=== PATIENT | male | born 1955 | race Caucasian/White ===

== ENCOUNTER 2022-10-19 10:54 | Inpatient (IN) | payer MEDICARE, SELFPAY ==
[2022-10-19] VITALS (13 sets, daily range): BP systolic 114–150; BP diastolic 72–111; PULSE 71–88; RESP 15–22; TEMP 36.3–36.7; O2SAT 96–100; BMI 35.9
--- NOTE | ~2022-10-19 | CT_ITS ---
EXAMINATION: NONCONTRAST HEAD CT NONCONTRAST CERVICAL SPINE CT INDICATION INFORMATION: Fall COMPARISON: None TECHNIQUE: Separate noncontrast CT examinations of the head and cervical spine were performed. Coronal head CT images and coronal and sagittal cervical spine images were created at the technologist workstation. DLP: 1513 mGy-cm DOSE LOWERING TECHNIQUES: This CT examination was performed using dose optimization techniques as appropriate, variously including the following: - Automated exposure control - Adjustment of mA and/or kV according to patient size (this includes techniques or standardized protocols for targeted exams were dose is matched to indication/reason for exam; i.e. extremities or head) - Use of iterative reconstruction technique FINDINGS: Head: Suboptimal assessment in some regions due to motion artifact. There is no evidence of acute intracranial hemorrhage or territorial infarction. No abnormal mass-effect or midline shift is seen. Vines to white matter differentiation is well preserved. No extra-axial fluid collections are identified. The ventricles are normal in size. There is no abnormal attenuation within the brain parenchyma. The osseous structures and soft tissues are normal. Slight mucosal thickening of the maxillary and right sphenoid sinuses as well as the bilateral ethmoid air cells. The mastoid air cells are well-aerated. Cervical spine: There is significantly limited evaluation of much of the cervical spine due to motion artifact. There is degenerative change at the atlantodens articulation. There is grossly anatomic alignment of the vertebral bodies and posterior elements. Vertebral body heights are maintained. There is disc space narrowing of the lower cervical spine with associated endplate irregularity/osteophyte formation. No definite evidence of acute fracture, though subtle fracture is difficult to exclude in the setting of motion. No appreciable prevertebral soft tissue swelling. CT/CT cervical spine wo IV con IMPRESSION: HEAD: Suboptimal assessment in some regions due to motion artifact. No acute findings identified. CERVICAL SPINE: Significantly limited evaluation due to motion artifact. No definite acute findings identified, though subtle fractures would be difficult to exclude in this setting.
--- NOTE | ~2022-10-19 | FL_ITS ---
EXAMINATION: XR FLUOROSCOPY WITH IMAGES CLINICAL INFORMATION: ORIF left humerus. COMPARISON: Radiographs dated 10/19/2022. TECHNIQUE: Fluoroscopy Supervised By: Dr. Glenn Landaverde. Fluoroscopy Time: 0.5 minutes. Cumulative Dose: 15.0 mGy. DAP: 0.262 Gycm2. Images: 1. FINDINGS: An intraoperative fluoroscopic image is obtained during ORIF of a left humeral fracture/dislocation. The previously seen dislocation is partially reduced in the interim, with subluxation. A comminuted, displaced fracture fragment is seen of the greater tuberosity of the proximal left humerus. FL/FL guidance in OR IMPRESSION: Intraoperative fluoroscopic guidance is provided during ORIF of a left humeral fracture/dislocation. Please see the patient's Operative Report for full procedural details.
--- NOTE | ~2022-10-19 | CT_ITS ---
EXAMINATION: CT CHEST, ABDOMEN AND PELVIS WITH CONTRAST. CLINICAL INFORMATION: fall.. COMPARISON: Plain films from today. TECHNIQUE: Multidetector volumetric imaging was performed from the thoracic inlet through the pubic symphysis following administration of 85 mL Omnipaque 300 intravenous contrast. Sagittal and coronal reformatted images were obtained on the technologist's workstation. This CT examination was performed using dose optimization techniques as appropriate, variously including the following: *Automated exposure control *Adjustment of mA and/or kV according to patient size (this includes techniques or standardized protocols for targeted exams where dose is matched to indication/reason for exam; i.e. extremities or head) *Use of iterative reconstruction technique DLP: 2346 mGy-cm FINDINGS: CHEST: Lung: Mild dependent atelectasis. No pneumothorax or dense consolidation. Central airways grossly unremarkable Mediastinum: The mediastinum is normal. The central vascular structures are unremarkable. No hilar or mediastinal lymphadenopathy. Pericardium/Pleura: No significant effusion. No pleural mass or thickening. Chest Wall/Axilla: Extensive soft tissue swelling is seen with the comminuted fracture dislocation of the left shoulder. The main humeral head components is dislocated inferiorly and medially with the displaced greater trochanteric fracture fragment displaced laterally likely within the joint space. Inferior scapular fracture seen as well ABDOMEN/PELVIS: Peritoneal Space:No significant free air or free fluid identified. Liver, Gallbladder, Biliary Tree: The liver is normal in size, shape, and attenuation. No focal hepatic lesion or biliary ductal dilatation is present. Gallstones in the dependent portion of the otherwise unremarkable gallbladder Pancreas: Unremarkable. Spleen: Unremarkable. Adrenal Glands: Unremarkable. Kidneys and Ureters: The kidneys are normal in size, shape, and attenuation. No hydronephrosis, hydroureter, or calculi seen. No perinephric stranding. Bladder: Unremarkable. Gastrointestinal Tract: Extensive colonic diverticulosis more so in the sigmoid colon. No colonic wall thickening or pericolonic inflammatory change. Visualized small bowel unremarkable Abdominal Wall: Diastases of the rectus abdominis muscle likely inferior hernia component. No obstruction to the bowel in this region Lymphovascular Structures: Vascular calcification in the aorta iliac system. No bulky adenopathy. Pelvic Viscera: Unremarkable. Osseus Structures: Complex fracture dislocation of the left humeral head as described above. Displaced inferior left scapular fracture as well. I do not appreciate any associated displaced rib fractures although there is patient motion which could obscure nondisplaced fractures. Extensive multilevel degenerative changes in the spine with chronic appearing wedge deformities in the midthoracic spine. Compression of the superior endplate of L1 also more likely chronic in nature based on the degree of sclerosis and osteophyte formation. Extensive multilevel degenerative changes seen elsewhere. CT/CT abdomen pelvis w IV con IMPRESSION: Complex fracture dislocation of the left shoulder and scapula with associated soft tissue swelling. I do not appreciate any visceral organ injury. Chronic appearing changes otherwise as described above.
--- NOTE | ~2022-10-19 | US_ITS ---
EXAMINATION: US VENOUS WITH DOPPLER UPPER EXTREMITY, LEFT CLINICAL INFORMATION: Left upper extremity swelling. COMPARISON: None available. TECHNIQUE: Ultrasound of the upper extremity is performed using compression sonography and color and pulse Doppler flow with assessment of augmentation of flow. There is also imaging and Doppler assessment of the jugular and subclavian veins. Spectral analysis with color-flow imaging is performed. Technically limited by patient's body habitus. FINDINGS: Respiratory variation, normal compression, and augmented flow are noted throughout the upper extremity including the axillary, brachial, cubital, and radial and ulnar veins. There is normal flow in the internal jugular and subclavian veins. There is no visible deep or superficial thrombophlebitis. If the patient's symptoms progress, a followup ultrasound in 5 -7 days might be of value to exclude proximal propagation from a nonvisualized distal arm vein. US/US venous duplex UE LT IMPRESSION: No DVT demonstrated in the left upper extremity.
--- NOTE | ~2022-10-19 | XR_ITS ---
EXAMINATION: XR SHOULDER, LEFT CLINICAL INFORMATION: Shoulder reduction? COMPARISON: Images of the left humerus earlier today TECHNIQUE: Single frontal view of the shoulder obtained of the left shoulder. FINDINGS: Comminuted fracture dislocation of the shoulders again seen with the majority the humeral head anteriorly and inferiorly dislocated. The greater trochanteric fracture fragments are displaced superiorly and laterally. Displaced inferior scapular fracture noted as well. Visualized left chest unremarkable. XR/XR shoulder LT 1V IMPRESSION: Comminuted fracture dislocation of the left shoulder as described above.
--- NOTE | ~2022-10-19 | XR_ITS ---
EXAMINATION: XR HUMERUS, LEFT CLINICAL INFORMATION: Pain status post fall. COMPARISON: None available. TECHNIQUE: AP and lateral views of the left humerus. FINDINGS: Humeral head is anteriorly dislocated with avulsed fragments at the greater tuberosity remaining near the glenoid fossa. Soft tissues are swollen. 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 XR/XR humerus LT IMPRESSION: Anterior dislocation of the humeral head with an avulsion fracture at the greater tuberosity.
--- NOTE | 2022-10-19 11:31 | ED.FALL ---
HPI - Fall General Chief Complaint: Fall Stated Complaint: L ARM/RIB/ PAIN/BRUISING/SWELLIN S/P FALL 1 WK AGO Time Seen by Provider: 10/19/22 16:21 Source: patient Mode of arrival: ambulatory Limitations: no limitations History of Present Illness HPI Narrative: 67-year-old male history of atrial fibrillation and vertigo presents to ED for left arm pain with ecchymosis and bruising since fall that occurred at 11 days ago. Patient states 11 days ago while walking he had a bout of vertigo which she suffers from chronically which caused him to fall onto his left shoulder. Patient denies hitting head, loss of consciousness, chest pain, shortness of breath, or abdominal pain. Patient has not had any dizzy spells since incident and denies any rectal bleeding, headache, nausea, vomiting, blood in urine, coughing up blood, chest pain, shortness of breath, neck pain, syncope, ringing in ear, or pleurisy. Patient states he has been moving his left upper extremity for the past 11 days. Patient states left arm has been significantly swollen for the past 11 days. Patient presents to ED for left arm pain and swelling. Patient states left arm swelling has not resolved. Patient came to the ED for left arm pain and swelling. Related Data Home Medications Medication Instructions Recorded Confirmed albuterol sulfate 90 mcg/actuation 1 inh inhalation QID PRN Shortness 10/20/22 10/20/22 aerosol inhaler Of Breath Or Wheezing meclizine 25 mg tablet 25 mg PO DAILY PRN Dizziness Or 10/20/22 10/20/22 Vertigo Previous Rx's Medication Instructions Recorded oxycodone 5 mg capsule 5 mg PO Q8H PRN pain 3 days #9 caps 10/20/22 Allergies Allergy/AdvReac Type Severity Reaction Status Date / Time No Known Allergies Allergy Unknown UNKNOWN Unverified 10/26/19 14:48 [NO KNOWN ALLERGIES] Review of Systems Review of Systems: Left arm pain with swelling. Yes all other systems are reviewed and are negative PMFSH Social History Social History Household Members: None Housing: Apartment Do you presently have visiting nurse or other home services: Yes Patient Tobacco Use Status: Current everyday Tobacco user Tobacco use type: Cigarette Physical Exam Vital Signs: Vital Signs: Last Vital Signs Temp 98.8 F 10/21/22 14:20 Pulse 74 10/21/22 14:20 Resp 18 10/21/22 14:20 BP 142/95 H 10/21/22 14:20 Pulse Ox 99 10/21/22 14:20 O2 Del Method Room Air 10/21/22 14:20 O2 Flow Rate 4 10/20/22 05:34 Oxygen Flow Rate 0 10/19/22 20:58 BMI result Body Mass Index 35.9 Const: General: cooperative, healthy appearing, comfortable, no acute distress, well developed, alert, awake and Physically active Orientation/consciousness: oriented to person, oriented to place, oriented to time and patient oriented x3 HEENT: Head: Yes normal to inspection, Yes No palpable skull fracture present, Yes normocephalic, Yes atraumatic and No abrasion Eyes: General: appearance normal, both eyes and all related structures Neck: Neck: Yes normal visual inspection, Yes full ROM, Yes no lymphadenopathy, Yes no meningeal signs, Yes trachea midline, Yes supple, No anterior neck swelling and No tender Chest: Chest/axillae images: 1. Large area of ecchymosis Resp: Effort & Inspection: normal respiratory effort and able to speak in complete sentences Auscultation: clear to auscultation bilaterally Cardio: Jugular venous distension: no JVD Heart sounds: S1 normal heart sound present and S2 normal heart sound present GI: Inspection: Yes normal to inspection and Yes abdominal wall ecchymosis Palpation (GI): Soft to palpation, not firm, nontender, no guarding and not rigid Abdomen image: 1. Positive for ecchymosis : General: No CVA tenderness and Yes no CVA tenderness Back/Spine/Pelvis: Back: no CVA tenderness, No CVA tenderness and No back tenderness Skin: General skin exam: no rashes or lesions noted and elasticity normal Neuro: General: oriented to person, oriented to place, oriented to time, patient oriented x3, gait normal, tone normal, moves all extremities, Normal light touch and pain sensation, no meningeal signs, no focal motor deficits, CN's II-XI intact bilaterally and normal sensation to monofilament Extrem: Shoulder/upper arm images: 1. Left upper extremity swelling up to hands without any erythema or hotness. Positive for ecchymosis. Positive for tenderness only at humeral head. Patient able to move left upper extremity but limited due to pain. Neuro and vascular exam of left upper extremity intact. Course Course Course Narrative: RME - 67 yo male with history of vertigo presents to the ER for evaluation of left arm pain and swelling s/p fall 11 days ago. He was dizzy and fell onto the left side. Has had upper left arm pain since and developed significant swelling to the arm. Pain is 10/10. No headache, chest pain or abdominal pain. Tenderness and limited ROM of the left upper arm, concern for humerus fx. Very swollen hand but warm with palpable pulse. Will place in sling for comfort. Plan: x-ray humerus, U/S to r/o DVT Reevaluation(s) Reevaluation #1: Dr. Ballesteros came and evaluated the patient this morning. Patient require surgical intervention, planning for surgery tomorrow. Patient desats with sleep, likely has underlying, undiagnosed JAVAN given his body habitus. Does not use CPAP at home or oxygen at home. Will plan to admit to Medicine with Orthopedic consult, plan for surgery tomorrow. Time: 08:55 Medications Administered Generic Name Dose Route Start Last Admin Trade Name Freq PRN Reason Stop Dose Admin Morphine Sulfate 2 mg 10/20/22 09:13 10/21/22 11:43 Morphine Sulfate 2 Mg/Ml Cartridge IVPUSH 2 mg Q3H PRN Administration moderate pain Protocol Sodium Chloride 3 ml 10/20/22 16:00 10/21/22 14:11 0.9 % Sodium Chloride Flush 3 Ml Syringe IVFLUSH Not Given QSHIFT DENISA Discontinued Medications Generic Name Dose Route Start Last Admin Trade Name Freq PRN Reason Stop Dose Admin Acetaminophen 650 mg 10/19/22 16:55 10/19/22 17:08 Acetaminophen 325 Mg Tablet PO 10/19/22 16:56 650 mg ONCE ONE Administration Hydromorphone HCl 0.5 mg 10/19/22 21:06 10/19/22 21:09 Hydromorphone Hcl 0.5 Mg/0.5 Ml Syringe IVPUSH 10/19/22 21:07 0.5 mg ONCE ONE Administration Protocol Cefazolin Sodium/Dextrose 2 gm in 50 mls @ 100 mls/hr 10/20/22 10:46 10/21/22 14:03 Ancef IV 10/20/22 11:15 Not Given PREOP ONE Iohexol 100 ml 10/19/22 22:04 10/19/22 22:05 Iohexol 350 Mg/Ml 100 Ml Infus..Btl IV 10/19/22 22:05 85 ml ONCE ONE Administration Ketamine HCl 113.398 mg 10/19/22 21:16 10/19/22 21:23 Ketamine Hcl/Ns 50 Mg/5 Ml Syringe 1 mg/kg (113.398 mg) 10/19/22 21:17 113.398 mg IVPUSH Administration ONCE ONE Ketamine HCl 113.398 mg 10/19/22 21:33 10/19/22 21:35 Ketamine Hcl/Ns 50 Mg/5 Ml Syringe 1 mg/kg (113.398 mg) 10/19/22 21:34 113.398 mg IVPUSH Administration ONCE ONE Lorazepam 2 mg 10/19/22 21:50 10/19/22 21:50 Lorazepam 2 Mg/Ml Vial IVPUSH 10/19/22 21:51 2 mg ONCE ONE Administration Lorazepam 2 mg 10/19/22 21:54 10/19/22 22:16 Lorazepam 2 Mg/Ml Vial IVPUSH 10/19/22 21:55 Not Given ONCE ONE Morphine Sulfate 4 mg 10/19/22 19:22 10/19/22 19:30 Morphine Sulfate 4 Mg/Ml Cartridge IVPUSH 10/19/22 19:23 4 mg ONCE ONE Administration Protocol Ondansetron HCl 4 mg 10/19/22 21:16 10/19/22 21:39 Ondansetron Hcl 4 Mg/2 Ml Vial IVPUSH 10/19/22 21:17 4 mg ONCE ONE Administration Oxycodone HCl 5 mg 10/19/22 16:55 10/19/22 17:08 Oxycodone Hcl Immed Release 5 Mg Tablet PO 10/19/22 16:56 5 mg ONCE ONE Administration Propofol 150 mg 10/19/22 20:35 10/19/22 20:45 Propofol 200 Mg/20 Ml Vial IVPUSH 10/19/22 20:36 100 mg ONCE ONE Administration Medical Decision Making Medical Decision Making MDM Narrative: 67-year-old male history of AFib and Vertigo presents to ED for left arm swelling and ecchymosis in since fall 11 days ago due to vertigo. Patient has not had dizziness, vertigo, chest pain, shortness of breath, abdominal pain, rectal bleeding, vomiting blood, blood in stool, bloody urine, coughing up blood, headache, neck pain, or pleurisy since falling 11 days ago. Patient just came to the ED due to left arm swelling being persistent with pain since fall. 16:50. X-ray confirms anterior dislocation of femur head with fracture general tuberosity. Ultrasound negative for DVT. History physical exam does not indicate cellulitis, compartment syndrome, stroke myocardial infarction, chest/abdominal traumatic injury, skull fracture, cervical spine fracture, or brain bleed. Patient refuses sling. 17:25: Spoke with Dr. Park recommends attempt at shoulder reduction. This was explained to patient was agreeable to do conscious sedation for shoulder reduction. Shoulder dislocation occurred 11 days ago. 5: 36pm: Patient signed consent for conscisouness sedation 9:59pm: Shoulder reduction was not successful. patient has large areas of bruising on the chest and someone abdomen. Patient received propofol for shoulder reduction. Patient received Ativan 4 mg, ketamine at least 200mg for for CT scan to be done to rule out any life-threatening traumatic injury. Patient required multiple doses. Patient was placed on monitor ample bag ready after receiving large amount of meds for CT scan. Spoke with Dr. Park she states she will contact Dr. Ballesteros CT if patient should be admitted for failed shoulder reduction attempt. 2:35am CT scan shows place inferior scapular fracture with left shoulder dislocation and [facility] was called for consult earlier in the night. Before [facility] call back [facility] orthopedic surgeon on-call Dr. Park was informed of patient's displaced inferior scapular fracture with left shoulder dislocation she was sent imaging reports. She states patient could still be discharged and follow up in clinic once awaken and will be sccheduled for surgery during the week. Spoke with [facility] Orthopedic Surgeon Trauma Dr. Burk and he was informed of patient's history and physical exam and imaging resutls. He states usually scapular fractures are not repaired, but since our orthopedics is aware of the case and has seen imagings including scapular fracture patient should continue be managed by [facility] orthopedic Surgeon ( although he himself would keep patient for the OR if that was his patient).. Patient signed out to Dr. Ruth due to him still being sedated. Ortho consult placed in computuer. Differential Diagnosis Differential Diagnoses: The differential diagnosis associated with the presentation includes (Traumatic abdominal/Chest injury, shoulder disclocation/fracture, brain bleed, cervical spine fracture) Admission/Observation Consideration of admission/observation: Escalation of care including admission/observation considered Consult Healthcare Provider Management of the patient was discussed with: Administration Manager (Dr. Park ( [facility]), Dr. Burk ( [facility])) Lab Data MDM Lab Attestation statement: I reviewed the patient's lab results. 10/21/22 05:36 10/21/22 05:36 Labs: Lab Results 10/19/22 10/20/22 Range/Units 18:11 00:48 WBC 9.3 (4.8-10.8) X10*3/uL RBC 4.41 L (4.60-5.80) X10*6/uL Hgb 13.9 L (14.0-18.0) g/dl Hct 40.8 L (42.0-52.0) % MCV 92.5 (80.0-98.0) fL MCH 31.5 (27.0-33.0) pg MCHC 34.1 (31.0-36.0) g/dl RDW 13.0 (11.0-16.0) % Plt Count 355 (160-400) X10*3/uL MPV 8.9 L (9.4-12.4) fL Immature Gran % (Auto) 0.5 H (0.0-0.4) % Neut % (Auto) 66.4 (45-73) % Lymph % (Auto) 23.0 (20-40) % [place] % (Auto) 6.6 (2-11) % Eos % (Auto) 2.7 (0-4) % Baso % (Auto) 0.8 (0-2) % Lymph # (Auto) 2.1 (1.2-4.9) X10*3/uL [place] # (Auto) 0.6 (0.1-1.2) X10*3/uL Eos # (Auto) 0.3 (0.0-0.4) X10*3/uL Baso # (Auto) 0.1 (0.0-0.2) X10*3/uL Abs Immat Gran (auto) 0.05 H (0.00-0.03) X10*3/uL Absolute Neuts (auto) 6.2 (2.0-8.3) x10*3/uL Absolute Nucleated RBC 0.000 (0.0-0.012) X10*3/uL Nucleated RBC % (auto) 0.0 (0.0-0.2) /100WBC Sodium 139 (135-145) mmol/L Potassium 4.0 (3.3-5.1) mmol/L Chloride 109 H (96-108) mmol/L Carbon Dioxide 22 (22-29) mmol/L Anion Gap 12 (12-20) BUN 12 (9-16) mg/dL Creatinine 0.78 (0.5-1.4) mg/dL Estim Creat Clear Calc 117.4 Estimated GFR > 60 Random Glucose 95 (60-115) mg/dL Calcium 9.3 (8.4-10.2) mg/dL Total Bilirubin 1.0 (0.0-1.0) mg/dL AST 19 (5-37) U/L ALT 23 (0-40) U/L Alkaline Phosphatase 75 (39-117) U/L Total Protein 6.2 L (6.5-8.0) g/dL Albumin 3.3 L (3.5-5.0) g/dL Independent Interpretation I performed an independent interpretation of an: Plain X-Ray and CT Scan Radiology Impression Discussion of test interpretation with radiology: I have reviewed the radiologist's reading. External Record Review External record reviewed: Other (Prior ED visist) Critical Care Time Critical Care Time Critical Care Time: Yes Total Critical Care Time: 60 Attestation: Externa jugular vein insertion, propofol for sedation, ketamine, and Ativan for CT scan imaging for trauma workup per Discharge Plan Discharge Clinical Impression: Anterior shoulder dislocation, Closed left scapular fracture Patient Disposition: Admitted As Inpatient Discharge Date/Time: 10/20/22 17:25
--- NOTE | 2022-10-19 16:24 | MHC.EDTECH ---
This pct attempted to re-apply sling to left arm patient states he doent want sling on due to it being uncomfortable RN AWARE
[2022-10-19] MEDS: oxyCODONE HCl Immed Release 5 MG TABLET PO (17:08)
[2022-10-19] MEDS: Acetaminophen 325 MG TABLET 650 MG PO (17:08)
--- NOTE | 2022-10-19 17:11 | PC.NURSE ---
medicated per the MAR for pain
--- NOTE | 2022-10-19 17:12 | PC.NURSE ---
swelling noted to left arm, pt has had this swelling and pain for the past 11 days since the fall. stating he just wants his shoulder put back in .
[2022-10-19 18:14] LABS: MANUAL DIFF FLAG NO
[2022-10-19 18:16] LABS: Basophils Absolute Auto 0.1 X10*3/uL (0.0-0.2); Basophils Percent Auto 0.8 % (0-2); Eosinophils Absolute Auto 0.3 X10*3/uL (0.0-0.4); Eosinophils Percent Auto 2.7 % (0-4); Hematocrit 40.8 % (42.0-52.0); Hemoglobin 13.9 g/dl (14.0-18.0); Imm Gran Abs Auto 0.05 X10*3/uL (0.00-0.03); Imm Gran Pct Auto 0.5 % (0.0-0.4); Lymphocytes Absolute Auto 2.1 X10*3/uL (1.2-4.9); Mean Corpuscular HGB Conc 34.1 g/dl (31.0-36.0); Mean Corpuscular Hemoglobin 31.5 pg (27.0-33.0); Mean Corpuscular Volume 92.5 fL (80.0-98.0); Mean Platelet Volume 8.9 fL (9.4-12.4); Monocytes Absolute Auto 0.6 X10*3/uL (0.1-1.2); Monocytes Percent Auto 6.6 % (2-11); Neutrophils Absolute Auto 6.2 x10*3/uL (2.0-8.3); Neutrophils Percent Auto 66.4 % (45-73); Platelet Count 355 X10*3/uL (160-400); Red Blood Count 4.41 X10*6/uL (4.60-5.80); White Blood Count 9.3 X10*3/uL (4.8-10.8)
--- NOTE | 2022-10-19 18:26 | PC.NURSE ---
attempted IV x2 unsuccessfully. pt yelling at this RN that we are taking too long for the procedure. pt educated about conscious sedation and the time it could potentially take, pt angry with this information. upon the second attempt at iv pt began yelling at this RN stating that he wishes to leave if this is not done and to send in another nurse immediately.
--- NOTE | 2022-10-19 18:51 | PC.NURSE ---
provider at bedside for ultrasound guided IV
[2022-10-19] MEDS: Morphine Sulfate 4 MG/ML CARTRIDGE IVPUSH (19:30)
--- NOTE | 2022-10-19 19:36 | PC.NURSE ---
assumed care of pt at 1900 - PA Chris in room placing EJ iv R side. pt to go to CT scan next. medicated per apr for pain. call hc within reach
[2022-10-19] MEDS: propofoL 200 MG/20 ML VIAL 150 MG IVPUSH (20:45)
[2022-10-19] MEDS: HYDROmorphone HCl 0.5 MG/0.5 ML SYRINGE IVPUSH (21:09)
[2022-10-19] MEDS: Ketamine HCl/NS 50 MG/5 ML SYRINGE 113.398 MG IVPUSH ×2 (21:23→21:35)
[2022-10-19] MEDS: ondansetron HCL 4 MG/2 ML VIAL IVPUSH (21:39)
[2022-10-19] MEDS: LORazepam 2 MG/ML VIAL IVPUSH (21:50)
[2022-10-19] MEDS: iohexoL 350 MG/ML 100 ML INFUS..BTL IV (22:05)
--- NOTE | 2022-10-19 22:08 | PC.NURSE ---
patient brought over to ct scan at 21:09 for scans as ordered by provider, pt still combative argumentative tossing and turning in pain refusing to stay still for scans, _second attempt at obtaining imaging). ARLETH Elizabeth aware and ordering ketamine per MD Souza verbal orders. pt medicated with ketamine per apr with respiratory, PA, MD all at patient's side throughout administration. pt on cardiac specialist, supplemental o2, and capnography. pt still awake agitated and tossing and turning despite first dose ketamine administration, second dose ketamine then administered as ordered per MD Souza order along with 2mg ativan iv. pt then asleep and ct scans complete. on cardiac specialist patient maintaining own airway with no issues wearing supplemental o2 at 5L NC. respirations even and unlabored equal chest rise and fall. respiratory therapy continues to be at bedside. continuous monitoring in place.
--- NOTE | 2022-10-19 22:38 | PC.NURSE ---
pt arousable to verbal stimuli briefly but then goes back to sleep. respirations even and unlabored , equal chest rise and fall - vital signs updated. continuous monitoring in place
[2022-10-20 00:10] VITALS: BP 122/89; PULSE 71; RESP 17; O2SAT 100
[2022-10-20 01:07] LABS: Alanine Aminotransferase 23 U/L (0-40); Albumin Level 3.3 g/dL (3.5-5.0); Alkaline Phosphatase 75 U/L (39-117); Anion Gap 12 (12-20); Aspartate Amino Transferase 19 U/L (5-37); Blood Urea Nitrogen 12 mg/dL (9-16); Calcium 9.3 mg/dL (8.4-10.2); Carbon Dioxide 22 mmol/L (22-29); Chloride 109 mmol/L (96-108); Creatinine Clr Calc Pharmacy 117.4; Estimated Glomerular Filt Rate > 60; Glucose Random 95 mg/dL (60-115); Sodium 139 mmol/L (135-145); Total Protein 6.2 g/dL (6.5-8.0)
--- NOTE | 2022-10-20 01:12 | PC.NURSE ---
this RN gave report to [place] HOWARD @00:30
[2022-10-20 02:00] VITALS: BP 103/83; PULSE 78; RESP 20; TEMP 36.5; O2SAT 99
--- NOTE | 2022-10-20 02:57 | PC.NURSE ---
this rn assumed care of pt @ 0030. pt resting positioned in semi fowlers position. pt arousable to name. per mio hoyt disposition to allow pt to wake up once safely awake okay to discharge
[2022-10-20 03:51] VITALS: BP 132/80; PULSE 67; RESP 18; TEMP 36.7; O2SAT 99
[2022-10-20 05:34] VITALS: BP 107/92; PULSE 79; RESP 18; TEMP 36.5; O2SAT 98
--- NOTE | 2022-10-20 05:37 | PC.NURSE ---
this rn and additional rn assisted pt to standing position to use bedside urinal. pt unsteady on feet at this time. pt able to produce urine at this time. pt repositioned back to bed boosted up in bed at this time.
--- NOTE | 2022-10-20 07:56 | PC.NURSE ---
assumed care of pt at 0700. pt resting in bed with eyes closed, wakes easily to voice. pt had ? taken himself off O2, satting at 98% on room air when awake. when pt falls back asleep he does desat to mid 80s.
--- NOTE | 2022-10-20 09:14 | PM.IMHP ---
History of Present Illness Date of Service: 10/20/22 Chief Complaint: left shoulder pain 67M PMH obesity, etoh dependence, mild intermittent asthma, presented with left shoulder pain. patient reports mechanical fall 11 days ptp from vertigo. left shoulder was significantly swollen, eventually family convinced him to go to ED. in ED found to have complex fracture dislocation of left shoulder and scapula associated soft tissue swelling. attempted reduction was unsuccessful, plan to admit for surgery. Review of Systems Review of Systems: Yes all other systems are reviewed and are negative [facility] Social History Advance Directives: No Advance Directives Information Provided: Yes Meds Allergies Allergy/AdvReac Type Severity Reaction Status Date / Time No Known Allergies Allergy Unknown UNKNOWN Unverified 10/26/19 14:48 [NO KNOWN ALLERGIES] Active Medications: Current Medications Morphine Sulfate (Morphine Sulfate 2 Mg/Ml Cartridge) 2 mg IVPUSH Q3H PRN; Protocol PRN Reason: moderate pain Sodium Chloride (0.9 % Sodium Chloride Flush 3 Ml Syringe) [facility] Medications Medication Instructions Recorded Confirmed Last Taken Type albuterol sulfate 90 mcg/actuation 1 inh inhalation QID PRN Shortness 10/20/22 10/20/22 Unknown History aerosol inhaler Of Breath Or Wheezing meclizine 25 mg tablet 25 mg PO DAILY PRN Dizziness Or 10/20/22 10/20/22 Unknown History Vertigo Physical Exam Vital Signs and Narrative: Vital Signs: Last Vital Signs Temp 97.7 F 10/20/22 05:34 Pulse 79 10/20/22 05:34 Resp 18 10/20/22 05:34 BP 107/92 H 10/20/22 05:34 Pulse Ox 98 10/20/22 05:34 O2 Del Method Nasal Cannula 10/20/22 05:34 O2 Flow Rate 4 10/20/22 05:34 Oxygen Flow Rate 0 10/19/22 20:58 BMI result Body Mass Index 35.9 General: AO X 3, no acute distress Resp: CTA bilateral, no accessory muscles used CVS: S1,S2,RRR GI: soft, non tender, non distended Neuro: motor grossly intact, alert Psych: appropriate affect, appropriate insight left shoulder tender and swolln Results Labs 10/19/22 18:11 10/20/22 00:48 Labs: Laboratory Results - last 24 hr 10/19/22 10/20/22 18:11 00:48 MCV 92.5 MCH 31.5 MCHC 34.1 RDW 13.0 Plt Count 355 MPV 8.9 L Immature Gran % (Auto) 0.5 H Neut % (Auto) 66.4 Lymph % (Auto) 23.0 [place] % (Auto) 6.6 Eos % (Auto) 2.7 Baso % (Auto) 0.8 Lymph # (Auto) 2.1 [place] # (Auto) 0.6 Eos # (Auto) 0.3 Baso # (Auto) 0.1 Abs Immat Gran (auto) 0.05 H Absolute Neuts (auto) 6.2 Absolute Nucleated RBC 0.000 Nucleated RBC % (auto) 0.0 Anion Gap 12 Estim Creat Clear Calc 117.4 Estimated GFR > 60 Random Glucose 95 Calcium 9.3 Total Bilirubin 1.0 AST 19 ALT 23 Alkaline Phosphatase 75 Total Protein 6.2 L Albumin 3.3 L Imaging Radiologist's Impressions: Impressions Venous Duplex 10/19/22 12:02 IMPRESSION: No DVT demonstrated in the left upper extremity. Humerus X-Ray 10/19/22 12:29 IMPRESSION: Anterior dislocation of the humeral head with an avulsion fracture at the greater tuberosity. Shoulder X-Ray 10/19/22 20:58 IMPRESSION: Comminuted fracture dislocation of the left shoulder as described above. Cervical Spine CT 10/19/22 21:21 IMPRESSION: HEAD: Suboptimal assessment in some regions due to motion artifact. No acute findings identified. CERVICAL SPINE: Significantly limited evaluation due to motion artifact. No definite acute findings identified, though subtle fractures would be difficult to exclude in this setting. Head CT 10/19/22 21:21 IMPRESSION: HEAD: Suboptimal assessment in some regions due to motion artifact. No acute findings identified. CERVICAL SPINE: Significantly limited evaluation due to motion artifact. No definite acute findings identified, though subtle fractures would be difficult to exclude in this setting. Abdomen/Pelvis CT 10/19/22 22:14 IMPRESSION: Complex fracture dislocation of the left shoulder and scapula with associated soft tissue swelling. I do not appreciate any visceral organ injury. Chronic appearing changes otherwise as described above. Chest CT 10/19/22 22:14 IMPRESSION: Complex fracture dislocation of the left shoulder and scapula with associated soft tissue swelling. I do not appreciate any visceral organ injury. Chronic appearing changes otherwise as described above. Assessment and Plan (1) Obesity: Qualifiers: Obesity classification: adult class 2 (BMI 35 - 39.9) Status: Acute Plan 67M PMH obesity, etoh dependence, mild intermittent asthma, presented with left shoulder pain. left shoulder pain after mechanical fall due to acute fracture and dislocation plan for surgery patient moderate risk for moderate risk surgery, benefits outweight risks, would proceed as planned etoh dependence ciwa obesity weight loss mild intermittent asthma stable full code patient with significant fracture requiring surgery, risk factors including obesity, etoh use, therefore, expected to require atleast 2 midnights. Time Spent With Patient Time: Total time managing care of this patient today ____ minutes. Quality Stroke Does the patient have a stroke diagnosis?: No VTE Prior VTE?: No VTE Risk Level:: Medical - moderate - high VTE Device Contraindication: N/A - Device Ordered VTE Drug Contraindication: N/A - Med Ordered
--- NOTE | 2022-10-20 09:15 | PHA.MEDREC ---
Pharmacy Consult ? Medication Reconciliation Pharmacy has completed the medication reconciliation.
--- NOTE | 2022-10-20 09:30 | P.CONOP_ITS ---
History of Present Illness HPI Consult date: 10/20/22 Consult reason: fracture Chief complaint: left shoulder pain Narrative: Patient fell and dislocated his shoulder 11 days ago. Attempts last night at reduction were unsuccessful. There is a fracture/dislocation of radiographs. He c/o left shoulder pain. [facility] Social History Social History Advance Directives: No Advance Directives Information Provided: Yes Meds Allergies Allergy/AdvReac Type Severity Reaction Status Date / Time No Known Allergies Allergy Unknown UNKNOWN Unverified 10/26/19 14:48 [NO KNOWN ALLERGIES] Active Medications: Current Medications Albuterol Sulfate (Albuterol Sulfate 90 Mcg 8 Gm Inhaler) 1 puff INHALE QID PRN PRN Reason: Shortness Of Breath Or Wheezing Meclizine HCl (Meclizine Hcl 25 Mg Tablet) 25 mg PO DAILY PRN PRN Reason: Dizziness Or Vertigo Morphine Sulfate (Morphine Sulfate 2 Mg/Ml Cartridge) 2 mg IVPUSH Q3H PRN; Protocol PRN Reason: moderate pain Sodium Chloride (0.9 % Sodium Chloride Flush 3 Ml Syringe) 3 ml IVFLUSH [facility] Medications Medication Instructions Recorded Confirmed Last Taken Type albuterol sulfate 90 mcg/actuation 1 inh inhalation QID PRN Shortness 10/20/22 10/20/22 Unknown History aerosol inhaler Of Breath Or Wheezing meclizine 25 mg tablet 25 mg PO DAILY PRN Dizziness Or 10/20/22 10/20/22 Unknown History Vertigo Physical Exam 2 Vital Signs: Vital Signs: Last Vital Signs Temp 97.7 F 10/20/22 05:34 Pulse 79 10/20/22 05:34 Resp 18 10/20/22 05:34 BP 107/92 H 10/20/22 05:34 Pulse Ox 98 10/20/22 05:34 O2 Del Method Nasal Cannula 10/20/22 05:34 O2 Flow Rate 4 10/20/22 05:34 Oxygen Flow Rate 0 10/19/22 20:58 BMI result Body Mass Index 35.9 Extrem: Other: audra nand swellign but SILT lateral deltoid and hand FIring epl/fp/io RP +2 Results Labs 10/19/22 18:11 10/20/22 00:48 Labs: Abnormal lab results 10/19/22 10/20/22 Range/Units 18:11 00:48 RBC 4.41 L (4.60-5.80) X10*6/uL Hgb 13.9 L (14.0-18.0) g/dl Hct 40.8 L (42.0-52.0) % MPV 8.9 L (9.4-12.4) fL Immature Gran % (Auto) 0.5 H (0.0-0.4) % Abs Immat Gran (auto) 0.05 H (0.00-0.03) X10*3/uL Chloride 109 H (96-108) mmol/L Total Protein 6.2 L (6.5-8.0) g/dL Albumin 3.3 L (3.5-5.0) g/dL H & H 10/19/22 Range/Units 18:11 Hgb 13.9 L (14.0-18.0) g/dl Hct 40.8 L (42.0-52.0) % All other labs normal. Diagnostic results Shoulder CT: image reviewed (greater tuberosity fracture and shoulder dislocation) Assessment and Plan (1) Anterior shoulder dislocation: Status: Acute Unreduceable closed and has been dislocated with a fracture for 11 days. Admit to medicine. ORIF pending clearance. (2) Greater tuberosity of humerus fracture: Status: Acute Time Spent With Patient Time: Total time managing care of this patient today ____ minutes. Procedures Date of Service Date of Service: 10/20/22
[2022-10-20 10:47] VITALS: BP 138/96; PULSE 85; RESP 15; O2SAT 98
--- NOTE | 2022-10-20 10:48 | PC.NURSE ---
reinforced 18g EJ in R neck with central line dressing
[2022-10-20] MEDS: Morphine Sulfate 2 MG/ML CARTRIDGE IVPUSH ×3 (13:24→20:46)
[2022-10-20 13:34] LABS: Appearance Urine Clear; Color Urine Dark Yellow; Glucose Urine UA Negative (Negative); Leukocyte Esterase Urine Trace (Negative); Nitrite Urine Negative (Negative); PH 5.5 (5.0-9.0); Specific Gravity - Urine >= 1.030 (1.005-1.025); UMIC TRIGGER UACC YES; Urine Blood Negative (Negative); Urine Ketones 15 mg/dL (Negative); Urine Protein Trace mg/dL (Neg-Trace)
[2022-10-20 13:36] LABS: Bacteria Urine None Seen (None Seen); RBC Urine 0-2 /HPF (0-2); Squamous Epithelial Cell Urine 0-2 /HPF (0-2); WBC Urine 0-5 /HPF (0-5)
[2022-10-20 13:46] LABS: Amphetamine Screen Urine Not Detected (Not Detect); Barbiturates, Urine Not Detected (Not Detect); Benzodiazepines Screen Urine Not Detected (Not Detect); Cannabinoid Screen Urine Not Detected (Not Detect); Cocaine Screen Urine Not Detected (Not Detect); Fentanyl, urine Not Detected (Not Detect); Opiate Screen Urine POSITIVE (Not Detect); Phencyclidine Screen Urine Not Detected (Not Detect)
[2022-10-20 19:14] VITALS: BP 163/93; PULSE 94; RESP 18; TEMP 36.2; O2SAT 96
[2022-10-20] MEDS: 0.9 % Sodium Chloride Flush 3 ML SYRINGE IVFLUSH (19:42)
[2022-10-21] VITALS (15 sets, daily range): BP systolic 126–156; BP diastolic 73–106; PULSE 74–97; RESP 16–24; TEMP 35.7–37.1; O2SAT 95–99
[2022-10-21] MEDS: Morphine Sulfate 2 MG/ML CARTRIDGE IVPUSH ×4 (02:30→21:03)
[2022-10-21 06:12] LABS: Hematocrit 37.3 % (42.0-52.0); Hemoglobin 12.6 g/dl (14.0-18.0); Mean Corpuscular HGB Conc 33.8 g/dl (31.0-36.0); Mean Corpuscular Hemoglobin 31.6 pg (27.0-33.0); Mean Corpuscular Volume 93.5 fL (80.0-98.0); Mean Platelet Volume 8.5 fL (9.4-12.4); Platelet Count 355 X10*3/uL (160-400); Red Blood Count 3.99 X10*6/uL (4.60-5.80); Red Cell Distribution Width 12.7 % (11.0-16.0); White Blood Count 7.5 X10*3/uL (4.8-10.8)
[2022-10-21 06:26] LABS: Anion Gap 10 (12-20); Blood Urea Nitrogen 10 mg/dL (9-16); Calcium 9.1 mg/dL (8.4-10.2); Carbon Dioxide 28 mmol/L (22-29); Chloride 103 mmol/L (96-108); Creatinine Clr Calc Pharmacy 104.1; Estimated Glomerular Filt Rate > 60; Glucose Fasting 96 mg/dL (60-99); Sodium 137 mmol/L (135-145)
[2022-10-21] MEDS: 0.9 % Sodium Chloride Flush 3 ML SYRINGE IVFLUSH ×2 (07:31→21:03)
--- NOTE | 2022-10-21 09:07 | P.PNIM_ITS ---
Subjective Subjective Date of Service: 10/21/22 Interval History: left shoulder pain Physical Exam 2 Vital Signs: Vital Signs: Last Vital Signs Temp 96.8 F 10/21/22 07:27 Pulse 81 10/21/22 07:27 Resp 18 10/21/22 07:27 BP 138/91 H 10/21/22 07:27 Pulse Ox 98 10/21/22 07:27 O2 Del Method Room Air 10/21/22 07:27 O2 Flow Rate 4 10/20/22 05:34 Oxygen Flow Rate 0 10/19/22 20:58 BMI result Body Mass Index 35.9 Extrem: Other: audra nand swellign but SILT lateral deltoid and hand FIring epl/fp/io RP +2 Objective Data Active Medications Albuterol Sulfate (Albuterol Sulfate 90 Mcg 8 Gm Inhaler) 1 puff INHALE QID PRN PRN Reason: Shortness Of Breath Or Wheezing Meclizine HCl (Meclizine Hcl 25 Mg Tablet) 25 mg PO DAILY PRN PRN Reason: Dizziness Or Vertigo Morphine Sulfate (Morphine Sulfate 2 Mg/Ml Cartridge) 2 mg IVPUSH Q3H PRN; Protocol PRN Reason: moderate pain Last Admin: 10/21/22 05:46 Dose: 2 mg Documented By: KIMBERLY Sodium Chloride (0.9 % Sodium Chloride Flush 3 Ml Syringe) 3 ml [facility] [place] [facility] [place] Last Admin: 10/21/22 07:31 Dose: 3 ml Documented By: DULCE Labs 10/21/22 05:36 10/21/22 05:36 Labs: Laboratory Results - last 24 hr 10/20/22 10/21/22 13:21 05:36 MCV 93.5 MCH 31.6 MCHC 33.8 RDW 12.7 Plt Count 355 MPV 8.5 L Absolute Nucleated RBC 0.000 Nucleated RBC % (auto) 0.0 Anion Gap 10 L Estim Creat Clear Calc 104.1 Estimated GFR > 60 Fasting Glucose 96 Calcium 9.1 Urine Color Dark Yellow Urine Appearance Clear Urine pH 5.5 Ur Specific [place] >= 1.030 H Urine Protein Trace Urine Glucose (UA) Negative Urine Ketones 15 Urine Blood Negative Urine Nitrite Negative Ur Leukocyte Esterase Trace H Urine RBC 0-2 Urine WBC 0-5 Ur Squamous Epith Cells 0-2 Urine Bacteria None Seen Hyaline Casts 3-5 Urine Opiates Screen POSITIVE H Urine Fentanyl Screen Not Detected Ur Barbiturates Screen Not Detected Ur Phencyclidine Scrn Not Detected Ur Amphetamines Screen Not Detected U Benzodiazepines Scrn Not Detected Urine Cocaine Screen Not Detected U Marijuana (THC) Screen Not Detected Assessment and Plan (1) Greater tuberosity of humerus fracture: Status: Acute Plan 67M PMH obesity, etoh dependence, mild intermittent asthma, presented with left shoulder pain. left shoulder pain after mechanical fall due to acute fracture and dislocation plan for surgery today patient moderate risk for moderate risk surgery, benefits outweight risks, would proceed as planned etoh dependence ciwa obesity weight loss mild intermittent asthma stable full code reason for continued hospitalization:surgery pending Time Spent With Patient Time: Total time managing care of this patient today ____ minutes. Quality Stroke Does the patient have a stroke diagnosis?: No VTE Prior VTE?: No VTE Risk Level:: Medical - moderate - high VTE Device Contraindication: N/A - Device Ordered VTE Drug Contraindication: N/A - Med Ordered
--- NOTE | 2022-10-21 11:17 | MHC.CM.PN ---
CM ATTEMPTED TO MEET WITH PT WHO REPORTS BEING ANGRY THAT HE IS STILL WAITING FOR HIS PROCEDURE HE REPORTS HE HAS BEEN HERE FOR DAYS WAITING FOR THE SURGEON HE WAS REMINDED THERE ARE OTHER PATIENTS ON THE SCHEDULE AND THE SURGEON IS ONE PERSON PT CALMED SOME BUT STILL DECLINED TO PARTICIPATE PT DID ACCEPT COPY OF HIS MEDICARE RIGHTS WITH VERBAL DELIVERY DCP TBD PENDING PT PARTICIPATION ? HOME WITH SAY
--- NOTE | 2022-10-21 14:24 | P.CONAN_ITS ---
HPI - Anesthesia Eval Consult details Narrative: 67 M for Left humerus fracture ORIF ETOH abuse , asthma , vertigo , Morbidly Obese , current smoker . Patient is a poor historian . As per medical records h/o A fib but patient denies it . As per documentation patient had a fall few days ago but patient did not seek medical attention at that time . Also h/o bowel surgery in the past after trauma . Patient does not have any ECHO in records . Case discussed with the surgeon, given the urgency of the procedure will proceed without any further workup as benefits outweight the risks . currently denies any chest pain or SOB . PMFSH Active Problems Active Problems: All Active Problems (Updated 10/20/22 @ 09:33 by Jarocho Ballesteros MD) Greater tuberosity of humerus fracture (Acute) Obesity (Acute) Closed left scapular fracture (Acute) Anterior shoulder dislocation (Acute) Family History Family history of problems with anesthesia: No Surgical History History of Problems with Anesthesia: No Social History Social History Household Members: None Housing: Apartment Do you presently have visiting nurse or other home services: Yes Patient Tobacco Use Status: Current everyday Tobacco user Tobacco use type: Cigarette Meds Allergies Allergy/AdvReac Type Severity Reaction Status Date / Time No Known Allergies Allergy Unknown UNKNOWN Unverified 10/26/19 14:48 [NO KNOWN ALLERGIES] Active Medications: Current Medications Albuterol Sulfate (Albuterol Sulfate 90 Mcg 8 Gm Inhaler) 1 puff INHALE QID PRN PRN Reason: Shortness Of Breath Or Wheezing Meclizine HCl (Meclizine Hcl 25 Mg Tablet) 25 mg PO DAILY PRN PRN Reason: Dizziness Or Vertigo Morphine Sulfate (Morphine Sulfate 2 Mg/Ml Cartridge) 2 mg IVPUSH Q3H PRN; Protocol PRN Reason: moderate pain Last Admin: 10/21/22 11:43 Dose: 2 mg Sodium Chloride (0.9 % Sodium Chloride Flush 3 Ml Syringe) 3 ml [facility]USH [facility] Last Admin: 10/21/22 14:11 Dose: Not Given Home Medications Medication Instructions Recorded Confirmed Last Taken Type albuterol sulfate 90 mcg/actuation 1 inh inhalation QID PRN Shortness 10/20/22 10/20/22 Unknown History aerosol inhaler Of Breath Or Wheezing meclizine 25 mg tablet 25 mg PO DAILY PRN Dizziness Or 09/12/23 09/12/23 Unknown History Vertigo Exam Exam Date and Time: October 21, 2022 1424 Height,Weight and Vital Signs: Height 5 ft 10 in Weight 113.398 kg Last Vital Signs Temp 96.8 F 10/21/22 07:27 Pulse 81 10/21/22 07:27 Resp 18 10/21/22 07:27 BP 138/91 H 10/21/22 07:27 Pulse Ox 98 10/21/22 07:27 O2 Del Method Room Air 10/21/22 07:27 O2 Flow Rate 4 10/20/22 05:34 Oxygen Flow Rate 0 10/19/22 20:58 Pertinent Lab Results Pertinent Lab Results: Laboratory Tests 10/19/22 10/20/22 10/20/22 18:11 00:48 13:21 WBC 9.3 RBC 4.41 L Hgb 13.9 L Hct 40.8 L MCV 92.5 MCH 31.5 MCHC 34.1 RDW 13.0 Plt Count 355 MPV 8.9 L Immature Gran % (Auto) 0.5 H Neut % (Auto) 66.4 Lymph % (Auto) 23.0 [place] % (Auto) 6.6 Eos % (Auto) 2.7 Baso % (Auto) 0.8 Lymph # (Auto) 2.1 [place] # (Auto) 0.6 Eos # (Auto) 0.3 Baso # (Auto) 0.1 Abs Immat Gran (auto) 0.05 H Absolute Neuts (auto) 6.2 Absolute Nucleated RBC 0.000 Nucleated RBC % (auto) 0.0 Sodium 139 Potassium 4.0 Chloride 109 H Carbon Dioxide 22 Anion Gap 12 BUN 12 Creatinine 0.78 Estim Creat Clear Calc 117.4 Estimated GFR > 60 Random Glucose 95 Fasting Glucose Calcium 9.3 Total Bilirubin 1.0 AST 19 ALT 23 Alkaline Phosphatase 75 Total Protein 6.2 L Albumin 3.3 L Urine Color Dark Yellow Urine Appearance Clear Urine pH 5.5 Ur Specific [place] >= 1.030 H Urine Protein Trace Urine Glucose (UA) Negative Urine Ketones 15 Urine Blood Negative Urine Nitrite Negative Ur Leukocyte Esterase Trace H Urine RBC 0-2 Urine WBC 0-5 Ur Squamous Epith Cells 0-2 Urine Bacteria None Seen Hyaline Casts 3-5 Urine Opiates Screen POSITIVE H Urine Fentanyl Screen Not Detected Ur Barbiturates Screen Not Detected Ur Phencyclidine Scrn Not Detected Ur Amphetamines Screen Not Detected U Benzodiazepines Scrn Not Detected Urine Cocaine Screen Not Detected U Marijuana (THC) Screen Not Detected 10/21/22 05:36 WBC 7.5 RBC 3.99 L Hgb 12.6 L Hct 37.3 L MCV 93.5 MCH 31.6 MCHC 33.8 RDW 12.7 Plt Count 355 MPV 8.5 L Immature Gran % (Auto) Neut % (Auto) Lymph % (Auto) [place] % (Auto) Eos % (Auto) Baso % (Auto) Lymph # (Auto) [place] # (Auto) Eos # (Auto) Baso # (Auto) Abs Immat Gran (auto) Absolute Neuts (auto) Absolute Nucleated RBC 0.000 Nucleated RBC % (auto) 0.0 Sodium 137 Potassium 4.0 Chloride 103 Carbon Dioxide 28 Anion Gap 10 L BUN 10 Creatinine 0.88 Estim Creat Clear Calc 104.1 Estimated GFR > 60 Random Glucose Fasting Glucose 96 Calcium 9.1 Total Bilirubin AST ALT Alkaline Phosphatase Total Protein Albumin Urine Color Urine Appearance Urine pH Ur Specific [place] Urine Protein Urine Glucose (UA) Urine Ketones Urine Blood Urine Nitrite Ur Leukocyte Esterase Urine RBC Urine WBC Ur Squamous Epith Cells Urine Bacteria Hyaline Casts Urine Opiates Screen Urine Fentanyl Screen Ur Barbiturates Screen Ur Phencyclidine Scrn Ur Amphetamines Screen U Benzodiazepines Scrn Urine Cocaine Screen U Marijuana (THC) Screen Airway Mallampati Class: III Neck ROM: Limited Loose/Missing/Broken Teeth: Yes (poor dentition globally ) Assessment and Plan Assessment Anesthesia Assessment: Anesthesia Plan Discussed and Chart Reviewed Final Anesthetic Review Family History of Problems with Anesthesia: No History of Problems with Anesthesia: No NPO: Yes ASA Class: IV and Emergency Final Preanesthetic Review: Meds/Allgs Chart Reviewed, Consent Obtained/Reviewed and Anes Risks/Benef Reviewed Patient Risk: High Procedure Risk: Intermediate Anesthetic Plan Anesthetic Plan: GA and Agree w/ Assess. and Plan Disposition: Inp. Admit - IMC
--- NOTE | 2022-10-21 14:57 | PC.NURSE ---
phlebotomis back at this time. type & screen orderedy by Dr. Zhao - hemolized. re draw at 1458.
--- NOTE | 2022-10-21 15:19 | MHC.SHP ---
Pre-Procedural Eval Section A Date of Service: 10/21/22 The patient is an INPATIENT: Yes Changes since office visit: No Cold of Flu in the past 2 weeks, No New Medical Problems, No Changes in Medication and No Patient answered all questions The History & Physical has been completed within 30 days and I have reviewed it.: Yes Section B Chief Complaint: left shoulder pain Allergies: Allergies Allergy/AdvReac Type Severity Reaction Status Date / Time No Known Allergies Allergy Unknown UNKNOWN Unverified 10/26/19 14:48 [NO KNOWN ALLERGIES] Plan I have reviewed the history and physical and performed a pertinent physical examination on my patient. No changes have occurred unless specified. Time Spent With Patient Time: Total time managing care of this patient today ____ minutes.
--- NOTE | 2022-10-21 18:44 | P.BOP_ITS ---
Brief Operative Note Date of Service: 10/21/22 Pre-op diagnosis: left shoulder fracture dislocation Post-op diagnosis: same Procedure: Open reduction internal fixation left proximal humerus Implants: [place] and Nephchanda Healcoil x 5 Surgeon: Jarocho Ballesteros MD Anesthesia: GETA Was an Development Specialist used for this Procedure?: Yes Development Specialist: Ghislaine Omer Estimated blood loss (mL): 250 IV fluids (mL): 2,000 Pathology: none sent Condition: stable Disposition: PACU
[2022-10-21] MEDS: Acetaminophen 1,000 MG/100 ML PIGGYBACK 400 MG IV (18:56)
[2022-10-21] MEDS: HYDROmorphone HCl 0.5 MG/0.5 ML SYRINGE 0.25 MG IVPUSH (19:09)
[2022-10-21] MEDS: oxyCODONE HCl Immed Release 5 MG TABLET 10 MG PO (19:22)
[2022-10-21 19:42] LABS: Hematocrit 36.1 % (42.0-52.0); Hemoglobin 12.4 g/dl (14.0-18.0)
[2022-10-21] MEDS: Melatonin 3 MG TABLET 6 MG PO (21:50)
[2022-10-21] MEDS: ceFAZolin Sodium/Dextrose,Iso 2 GM/50 ML PIGGYBACK IV (21:53)
--- NOTE | 2022-10-21 23:07 | PC.NURSE ---
Addendum entered by Elizabeth Vaca RN 10/22/22 00:34: pt able to void on his own now, voided 2x - 150 ml and 200 ml. Original Note: around 2230 pt unable to void, bladder scanned for 349 ml, Dr. Hussein aware and ordered straight cath. pt refused straight cath, will continue to monitor.
[2022-10-22] MEDS: Morphine Sulfate 2 MG/ML CARTRIDGE IVPUSH ×4 (00:09→09:33)
[2022-10-22] MEDS: Acetaminophen 1,000 MG/100 ML PIGGYBACK 400 MG IV ×2 (00:09→06:16)
--- NOTE | 2022-10-22 02:04 | PC.NURSE ---
Pt is insisting on not wearing his sling. He has taken it off twice now and we've attempted to put it back on but each time he won't let us put it on fully. I have educated the pt on the importance of wearing the sling properly and keeping it on but he is refusing.
[2022-10-22 03:31] VITALS: BP 118/85; PULSE 92; RESP 18; TEMP 36.2; O2SAT 97
[2022-10-22 06:52] LABS: Hematocrit 35.5 % (42.0-52.0); Hemoglobin 12.1 g/dl (14.0-18.0); Mean Corpuscular HGB Conc 34.1 g/dl (31.0-36.0); Mean Corpuscular Volume 93.9 fL (80.0-98.0); Mean Platelet Volume 9.4 fL (9.4-12.4); PLT CLUMP 1; Red Blood Count 3.78 X10*6/uL (4.60-5.80); Red Cell Distribution Width 12.7 % (11.0-16.0)
[2022-10-22 07:25] LABS: Platelet Count 369 X10*3/uL (160-400)
[2022-10-22 07:51] VITALS: BP 155/89; PULSE 88; RESP 18; TEMP 36; O2SAT 95
--- NOTE | 2022-10-22 09:11 | PM.PNORT ---
Subjective Subjective Date of Service: 10/22/22 Interval history: POD 1 s/p ORIF left shoulder fx / dislocation no overnight events c/o pain and discomfort with sling Physical Exam Vital Signs: Vital Signs: Last Vital Signs Temp 96.8 F 10/22/22 07:51 Pulse 88 10/22/22 07:51 Resp 18 10/22/22 07:51 BP 155/89 H 10/22/22 07:51 Pulse Ox 95 10/22/22 07:51 O2 Del Method Room Air 10/22/22 07:51 O2 Flow Rate 2.0 10/21/22 19:43 Oxygen Flow Rate 0 10/19/22 20:58 BMI result Body Mass Index 35.9 Const: General: cooperative, healthy appearing and no acute distress Resp: Effort & Inspection: normal respiratory effort and able to speak in complete sentences Cardio: Rate: regular rate Peripheral pulses: Peripheral pulses 2+ throughout GI: Palpation (GI): Soft to palpation Skin: General skin exam: no rashes or lesions noted Extrem: Other: left shoulder incidion/bandage clean dr and intact, anterior delotid sensation intact. Pulses present. Procedures Date of Service Date of Service: 10/22/22 Progress Note: A&P Assessment and plan (1) Greater tuberosity of humerus fracture: Status: Acute (2) Closed left scapular fracture: Status: Acute (3) Anterior shoulder dislocation: Status: Acute Plan Sling at all times -ok to remove for hygiene and therapy NO ER OF SHOULDER dispo pending Pt eval Time Spent With Patient Time: Total time managing care of this patient today ____ minutes. Quality Stroke Does the patient have a stroke diagnosis?: No VTE Prior VTE?: No VTE Risk Level:: Medical - moderate - high VTE Device Contraindication: N/A - Device Ordered VTE Drug Contraindication: N/A - Med Ordered
--- NOTE | 2022-10-22 09:19 | P.DS_ITS ---
DS: Providers Provider Date of Service: 10/22/22 Date of admission: 10/20/22 09:11 Primary care physician: Unknown Physician Consults: 10/20/22 02:55 Consult to Orthopedics Routine Consulting Provider: [facility] Reason for consultation: LEft shoulder dislocation with displaced scapular fracture. Has provider been notified: Yes DS: Diagnosis Discharge Diagnosis (1) Greater tuberosity of humerus fracture: Status: Acute (2) Closed left scapular fracture: Status: Acute (3) Anterior shoulder dislocation: Status: Acute DS: Summary Hospital Course Hospital Course: from initial hpi: 67M PMH obesity, etoh dependence, mild intermittent asthma, presented with left shoulder pain. patient reports mechanical fall 11 days ptp from vertigo. left shoulder was significantly swollen, eventually family convinced him to go to ED. in ED found to have complex fracture dislocation of left shoulder and scapula associated soft tissue swelling. attempted reduction was unsuccessful, plan to admit for surgery. hospital course: patient was admitted for left shoulder pain after mechanical fall due to acute fracture and dislocatoin. underwent surgery, was uneventful. patient has been non compliant with instructions, is not interested in PT or OT. importance has been gievn education. Prior alcohol dependence patient was monitor with CIWA and did not require phenobarbital. For obesity weight loss recommended. For mild intermittent asthma he remained stable. Patient will be discharged home. Time Spent with Patient Time attestation: Total time managing care of this patient today ____ minutes. Discharge coordination time: Greater than 30 minutes Quality: Safe Use of Opioids Does Pt have an Active Cancer Diagnosis on the Problem List?: No Quality: Stroke Does the patient have a stroke diagnosis?: No Physical Exam Vital Signs: Vital Signs: Last Vital Signs Temp 96.8 F 10/22/22 07:51 Pulse 88 10/22/22 07:51 Resp 18 10/22/22 07:51 BP 155/89 H 10/22/22 07:51 Pulse Ox 95 10/22/22 07:51 O2 Del Method Room Air 10/22/22 07:51 O2 Flow Rate 2.0 10/21/22 19:43 Oxygen Flow Rate 0 10/19/22 20:58 BMI result Body Mass Index 35.9 Const: General: cooperative, healthy appearing and no acute distress Resp: Effort & Inspection: normal respiratory effort and able to speak in complete sentences Cardio: Rate: regular rate Peripheral pulses: Peripheral pulses 2+ throughout GI: Palpation (GI): Soft to palpation Skin: General skin exam: no rashes or lesions noted Extrem: Other: left shoulder incidion/bandage clean dr and intact, anterior delotid sensation intact. Pulses present. DS: Data Data Completed and Pending Labs on day of discharge: Laboratory Results - last 24 hr 10/21/22 10/21/22 10/22/22 14:59 19:30 06:03 WBC 10.0 RBC 3.78 L Hgb 12.4 L 12.1 L Hct 36.1 L 35.5 L MCV 93.9 MCH 32.0 MCHC 34.1 RDW 12.7 Plt Count 369 MPV 9.4 Absolute Nucleated RBC 0.000 Nucleated RBC % (auto) 0.0 Blood Type O Negative Antibody Screen NEGATIVE Discharge Plan Discharge Anticipated Discharge Date/Time: 10/22/22 09:17 Patient Disposition: Home, Self-Care Discharge Diagnosis: left shoulder dislocation Referrals: [facility] [Provider Group] (Left shoulder dislocation with a Glenal tuberosity fracture and scapular fracture) Physician,Unknown J [Primary Care Provider] - 1 Week Discharge Medications: New oxycodone 5 mg capsule 5 mg PO Q8H PRN (Reason: pain) 3 Days Qty: 9 0RF Rx Instructions: Partial Fill upon patient request. Continued meclizine 25 mg Tablet 25 mg PO DAILY PRN (Reason: Dizziness Or Vertigo) albuterol sulfate 90 mcg/actuation Hfa Aerosol Inhaler 1 inh INHALATION QID PRN (Reason: Shortness Of Breath Or Wheezing) Discharge Orders: Discharge Order (Routine); Ordered 10/22/22 Ordered By: Harry Beasley Diet: Advance to usual diet Activity on Discharge: As tolerated Stand Alone Forms: Patient Portal Discharge page Print Language: Greenlandic Activity Restrictions/Additional Instructions: Recommend follow-up with orthopedic surgeon to schedule your surgeon for this week. Return to the ED for worsening pain swelling or extremity, chest pain, shortness of breath, or any other concerning symptoms. Care Plan Goals: recovery Health Concerns: shoulder fracture Plan of Treatment: follow ortho directions, keep arm in sling, no etoh, follow up with ortho Assessment: see above Patient Instructions: Shoulder Dislocation (ED), Scapular Fracture (ED), How to Use a Sling (ED)
[2022-10-22] MEDS: 0.9 % Sodium Chloride Flush 3 ML SYRINGE IVFLUSH (09:35)
[2022-10-22 10:15] VITALS: PULSE 136; O2SAT 97
--- NOTE | 2022-10-22 10:18 | MHC.CM.PN ---
CM MET WITH PT WHO REPORTS HE IS NOT GOING TO STR HE REPORTS HE WILL BE FINE GOING HOME IF HE HAS AN AMBULANCE HE DID EXPRESS CONCERNS ABOUT NOT BEING ABLE TO REACH HIS PROGRAM DIRECTOR AIR TALENT HE SAYS HER NAME IS CELSO AND SHE WORKS THROUGH [facility] CM CALLED [facility] [phone] AND WAS TRANSFERRED TO PTS KORIN, NIYA JASMINE X [phone] A VM MESSAGE WAS LEFT FOR NIYA REQUESTING A RETURN CALL AND INFORMING HIM CELSO NEEDED TO BE INFORMED OF DC PT WILL DC HOME VIA [facility] AT 1015 HOURS WITH RESUMPTION OF PROGRAM DIRECTOR AIR TALENT SERVICES
--- NOTE | 2022-10-22 14:41 | HO.POSTANES ---
Post Anesthesia Evaluation Post Anesthesia Evaluation Date of Service: 10/22/22 Vital Signs: Vital Signs Temp Pulse Resp BP Pulse Ox O2 Del Method 10/22/22 10:15 136 H 97 10/22/22 07:51 96.8 F 88 18 155/89 H 95 Room Air 10/22/22 03:31 97.2 F 92 18 118/85 97 Room Air Anesthesia: General Endotracheal-GETA Mental Status: Awake Pain Control: Satisfactory Nausea/Vomiting: None Hydration: Adequate Anesthesia-Related Issues: No Anes. Related Issues
--- NOTE | 2022-11-02 13:00 | W.PM.OPN ---
Operative Note Operative Note Date of Service: 10/21/22 Narrative: Date of Service: 10/21/22 Pre-op diagnosis: left shoulder fracture dislocation Post-op diagnosis: same Procedure: Open reduction internal fixation left proximal humerus Implants: [employer]illa [employer]hew Helacoil x 5 Surgeon: Jarocho Ballesteros MD Anesthesia: GETA Was an Forklift Picker used for this Procedure?: Yes Forklift Picker: Ghislaine Omer Estimated blood loss (mL): 250 IV fluids (mL): 2,000 Pathology: none sent Condition: stable Disposition: PACU Patient was brought to the operating room and placed in the beach chair position. He was prepped and draped in standard sterile fashion and a time out was called to indentify proper site, proper procedure and IV antibiotics per weight were administered. I began by making a trans deltoid incision. This was taken from the tip of the acromion and descended 5 cm distally and no further. So full-thickness skin flaps were developed and I identify the subacromial bursa and then the rotator cuff. I irrigated and debrided and was could feel that the greater tuberosity S remained attached to the rotator cuff but that the head had dislocated anteroinferior early. He has I placed dull retractors anteriorly and posteriorly by the glenoid with the greater tuberosity fragment protected and was able to pull the humeral head and humeral shaft back into position. This dislocated easily and without provocation however. There was a large Hill-Sachs lesion that appeared chronic and the only position of stability was 1 of extension and internal rotation is forward flexion it dislocated anteriorly and inferiorly which was counter intuitive. This did not appear to be acute. Given the chronicity of this and the nature of the patient's history I was hesitant to put and a metal plate and so I was able to place 5 Healicoil suture anchors into the head of the humerus and then attached these to the greater tuberosity fracture and to the surrounding rotator cuff. This was a remplissage-type of fixation that allowed for reduction of the humerus and reduction of the greater tuberosity fracture. This allowed for improved stability but again any time he forward flexed the humerus dislocated inferiorly. I reinforced the remplissage with FiberWire and was satisfied with the reduction and the imaging. I irrigated copiously and closed with absorbable suture and german. Sterile dressings were applied and I placed him into a position of abduction and slight extension with a sling and swath.
== END 2022-10-22 11:35 | disposition home or self-care (01) | DRG 494 ==
LOC: HO.ED 10-20 08:56 → HO.EDOVER 10-20 09:16 → HO.S3 10-20 16:33
PROVIDERS: Anesthesiology; Orthopaedic Surgery; Physician Assistant; Admitting Provider Internal Medicine; Emergency Provider Emergency Medicine; Visit Provider Internal Medicine
PROC: 0PSG04Z Reposition Left Humeral Shaft with Internal Fixation Device, Open Approach (ICD-10-PCS; principal; 2022-10-21 17:20)
DX: S42.202A Unspecified fracture of upper end of left humerus, initial encounter for closed fracture (principal); S42.102A Fracture of unspecified part of scapula, left shoulder, initial encounter for closed fracture; S43.315A Dislocation of left scapula, initial encounter; W19.XXXA Unspecified fall, initial encounter; E66.9 Obesity, unspecified; F17.210 Nicotine dependence, cigarettes, uncomplicated; Z71.6 Tobacco abuse counseling; F10.20 Alcohol dependence, uncomplicated; Z68.35 Body mass index [BMI] 35.0-35.9, adult; J45.20 Mild intermittent asthma, uncomplicated; Z79.899 Other long term (current) drug therapy
CPT/HCPCS: 36415; 70450; 71260; 72125; 73020; 73060; 74177; 80048; 80053; 80307; 81001; 85014; 85018; 85025; 85027; 86850; 86900; 86901; 93971; 97162; 99285; C1713; J0131; J0690; J1100; J1170; J2060; J2250; J2270; J2371; J2405; J2795; J3010; Q9967

== ENCOUNTER → 2022-10-20 09:11 | Outpatient (BNV) | payer MEDICARE, SELFPAY | PROVIDERS: Admitting Provider Internal Medicine; Emergency Provider Emergency Medicine; Visit Provider Orthopaedic Surgery | DX: S42.202A Unspecified fracture of upper end of left humerus, initial encounter for closed fracture (principal) | CPT/HCPCS: 23615; 99024; 99222 ==

== ENCOUNTER → 2022-10-20 09:11 | Outpatient (BNV) | payer MEDICARE, SELFPAY | PROVIDERS: Admitting Provider Internal Medicine; Emergency Provider Emergency Medicine; Visit Provider Internal Medicine | DX: S42.252A Displaced fracture of greater tuberosity of left humerus, initial encounter for closed fracture (principal); S42.102A Fracture of unspecified part of scapula, left shoulder, initial encounter for closed fracture; S43.015A Anterior dislocation of left humerus, initial encounter | CPT/HCPCS: 99223; 99232; 99239 ==

== ENCOUNTER 2022-10-29 13:25 | Outpatient (AMB) | payer MEDICARE, SELFPAY ==
--- NOTE | 2022-10-29 11:08 | MHC.OFFVIS ---
Intake Intake Visit Reasons: PO- s/p Left shoulder ORIF Intake Note: Mal is a 67 year old hand dominant male who presents today for his first post operative appointment s/p Left Proximal Humerus fx 10/21/22. Patient reports that he is having significant pain. Allergies No Known Allergies [NO KNOWN ALLERGIES] Allergy (Unknown, Unverified 10/29/22 13:52) UNKNOWN HPI PO- s/p Left shoulder ORIF HPI Details Mal is a 67 year old man who presents ~1 week S/P left shoulder proximal humerus ORIF. He says he is doing poorly. He is TOTALLY NON COMPLIANT. He has stopped using the sling and complains of pain PFSH Social History Household Members: None Housing: Apartment Do you presently have visiting nurse or other home services: Yes Patient Tobacco Use Status: Current everyday Tobacco user Tobacco use type: Cigarette Review of Systems Const All systems reviewed & are unremarkable except as noted in HPI and below Physical Exam Const General: no acute distress, alert and awake Orientation/consciousness: patient oriented x3 HEENT Head: Yes normocephalic and Yes atraumatic Eyes EOM: EOMs intact bilaterally Resp Effort & Inspection: normal respiratory effort and able to speak in complete sentences Cardio Jugular venous distension: no JVD Skin General skin exam: turgor normal Rashes: no rashes Neuro General: patient oriented x3 Extrem Other: Left Shoulder: Difficult to examine Biceps intact Moving fingers and SILT lateral deltoid Psych Appearance: grossly normal Affect: normal affect Attitude: cooperative Results Reviewed Results Reviewed: I personally reviewed relevant radiographs. Assessment & Plan Assessment & Plan (1) Greater tuberosity of humerus fracture: Code(s): S42.253A - Displaced fracture of greater tuberosity of unspecified humerus, initial encounter for closed fracture Plan: This is a 67 year old man S/P left proximal humerus ORIF, DOS: 10/21/12. He has to leave. I implored him to use his sling and he will see me next week for xray review. (2) Closed left scapular fracture: Code(s): S42.102A - Fracture of unspecified part of scapula, left shoulder, initial encounter for closed fracture (3) Anterior shoulder dislocation: Code(s): S43.016A - Anterior dislocation of unspecified humerus, initial encounter Coding Level of Care Code Global (92685) Diagnoses Greater tuberosity of humerus fracture S42.253A Closed left scapular fracture S42.102A Anterior shoulder dislocation S43.016A
== END 2022-10-29 14:22 | disposition home or self-care (01) ==
PROVIDERS: Visit Provider Orthopaedic Surgery
DX: S42.253A Displaced fracture of greater tuberosity of unspecified humerus, initial encounter for closed fracture (principal); S42.102A Fracture of unspecified part of scapula, left shoulder, initial encounter for closed fracture; S43.016A Anterior dislocation of unspecified humerus, initial encounter
CPT/HCPCS: 99024

== ENCOUNTER → 2022-10-29 13:25 | Outpatient (BNVA) | payer MEDICARE, SELFPAY | PROVIDERS: Visit Provider Orthopaedic Surgery ==

== ENCOUNTER 2022-11-06 09:59 | Outpatient (REF) | payer MEDICARE, SELFPAY ==
--- NOTE | ~2022-11-06 | XR_ITS ---
EXAMINATION: XR SHOULDER, LEFT CLINICAL INFORMATION: Left shoulder pain COMPARISON: 10/19/2022 TECHNIQUE: Two views of the left shoulder. FINDINGS: Redemonstration of the comminuted fracture involving the posterolateral aspect of the humeral head, with the humeral head now in alignment with the glenoid. There is also a chronic appearing, slightly displaced fracture at the inferior angle of the scapula. Skin german overlie the lateral shoulder. XR/XR shoulder LT min 2V IMPRESSION: Comminuted fracture of the posterolateral aspect of the humeral head with the humeral head now in alignment with the glenoid. There is also a slightly displaced fracture at the inferior angle of the scapula which appears chronic.
== END 2022-11-06 10:00 | disposition home or self-care (01) ==
LOC: HO.HOSX 09:59
PROVIDERS: Visit Provider Orthopaedic Surgery
DX: S42.102D Fracture of unspecified part of scapula, left shoulder, subsequent encounter for fracture with routine healing (principal); S42.252D Displaced fracture of greater tuberosity of left humerus, subsequent encounter for fracture with routine healing; S43.012D Anterior subluxation of left humerus, subsequent encounter
CPT/HCPCS: 73030

== ENCOUNTER 2022-11-06 12:01 | Outpatient (AMB) | payer MEDICARE, SELFPAY ==
--- NOTE | 2022-11-06 12:05 | MHC.OFFVIS ---
Intake Intake Visit Reasons: PO -Left Proximal Humerus 10/21/22 ORIF w/Xrays Intake Note: Mal is a 67 year old hand dominant male who presents today for his first post operative appointment s/p Left Proximal Humerus fx 10/21/22. Patient reports that he is having severe pain. He does not have prescription coverage on his insurance so he has been unable to obtain his pain medication, he [facility] and would like to try and get his medication here. Allergies No Known Allergies [NO KNOWN ALLERGIES] Allergy (Unknown, Unverified 11/06/22 12:28) UNKNOWN Medication List - Last Reconciled 11/06/22 by Lalita Mahan RN albuterol sulfate 90 mcg/actuation 1 inh inhalation QID PRN meclizine 25 mg PO DAILY PRN oxycodone 5 mg PO Q8H PRN 4 days HPI PO -Left Proximal Humerus 10/21/22 ORIF w/Xrays HPI Details Mal is a 67 year old man who presents ~2 weeks S/P left shoulder proximal humerus ORIF. He is seen today with his caregiver. He continues to complain of pain in his arm, and says he has been unable to obtain pain medication since his surgery. He says he has not been sleeping at night. He was non-complaint at his last appointment, having discontinued his sling at home. He is seen today wearing his sling. [facility] Social History Household Members: None Housing: Apartment Do you presently have visiting nurse or other home services: Yes Patient Tobacco Use Status: Current everyday Tobacco user Tobacco use type: Cigarette Review of Systems Const All systems reviewed & are unremarkable except as noted in HPI and below Physical Exam Const General: no acute distress, alert and awake Orientation/consciousness: patient oriented x3 HEENT Head: Yes normocephalic and Yes atraumatic Eyes EOM: EOMs intact bilaterally Resp Effort & Inspection: normal respiratory effort and able to speak in complete sentences Cardio Jugular venous distension: no JVD Skin General skin exam: turgor normal Rashes: no rashes Neuro General: patient oriented x3 Extrem Other: Left Shoulder: Biceps intact Moving fingers and SILT lateral deltoid Psych Appearance: grossly normal Affect: normal affect Attitude: cooperative Results Reviewed Results Reviewed: I personally reviewed relevant radiographs. located shoulder with comminuted greater trochanteric fracture Assessment & Plan Assessment & Plan (1) Greater tuberosity of humerus fracture: Code(s): S42.253A - Displaced fracture of greater tuberosity of unspecified humerus, initial encounter for closed fracture Plan: This is a 67 year old man S/P left proximal humerus ORIF, DOS: 10/21/12. He continues to complain of pain in his arm, and has been almost complketely non-compliant. He is seen today wearing his sling, and says he has not been able to sleep due to his pain. Hehas run out of pain medication following his surgery due to difficulties with his prescription. He was advised to wear the sling and should modify his activities accdordingly. I ordered Oxycodone to be taken BID. He will follow up in 2 weeks. (2) Closed left scapular fracture: Code(s): S42.102A - Fracture of unspecified part of scapula, left shoulder, initial encounter for closed fracture (3) Anterior shoulder dislocation: Code(s): S43.016A - Anterior dislocation of unspecified humerus, initial encounter Plan Scribed for Jarocho Ballesteros MD by Mingo Grimm, bilingual medical assistant, on 11/06/22 at 12:50 PM, EST. Orders: Orders XR shoulder LT min 2V 11/06/22 M25.519 - Pain in unspecified shoulder Medications: New oxycodone Partial Fill upon patient request. 5 mg PO Q12H PRN 30 tabs 0RF pain Coding Level of Care Code Global (00723) Diagnoses Greater tuberosity of humerus fracture S42.253A Closed left scapular fracture S42.102A Anterior shoulder dislocation S43.016A
== END 2022-11-06 13:02 | disposition home or self-care (01) ==
PROVIDERS: Visit Provider Orthopaedic Surgery
DX: S42.253A Displaced fracture of greater tuberosity of unspecified humerus, initial encounter for closed fracture (principal); S42.102A Fracture of unspecified part of scapula, left shoulder, initial encounter for closed fracture; S43.016A Anterior dislocation of unspecified humerus, initial encounter
CPT/HCPCS: 99024

== ENCOUNTER 2022-11-12 09:14 | Outpatient (AMB) | payer MEDICARE, SELFPAY ==
--- NOTE | 2022-11-12 09:32 | MHC.OFFVIS ---
Intake Intake Visit Reasons: PO - ORIF Left Humerus - Wound Check Intake Note: Mal is a 67 year old hand dominant male who presents today a wound check s/p Left Proximal Humerus fx 10/21/22. Rebekah were removed at his last appt on 11/06/22, [facility] opening, redness and swelling. Allergies No Known Allergies [NO KNOWN ALLERGIES] Allergy (Unknown, Verified 11/13/22 10:17) UNKNOWN HPI PO - ORIF Left Humerus - Wound Check HPI Details Mal is a 67 year old man who presents ~3 weeks S/P left shoulder proximal humerus ORIF. He is seen today with his caregiver. He returns today with concerns of worsening pain, redness, and drainage from his incision, and he is worried his wound has been re-opening since his rebekah were removed. [facility] Social History Household Members: None Housing: Apartment Do you presently have visiting nurse or other home services: Yes Patient Tobacco Use Status: Current everyday Tobacco user Tobacco use type: Cigarette Review of Systems Const All systems reviewed & are unremarkable except as noted in HPI and below Physical Exam Const General: no acute distress, alert and awake Orientation/consciousness: patient oriented x3 HEENT Head: Yes normocephalic and Yes atraumatic Eyes EOM: EOMs intact bilaterally Resp Effort & Inspection: normal respiratory effort and able to speak in complete sentences Cardio Jugular venous distension: no JVD Skin General skin exam: turgor normal Rashes: no rashes Neuro General: patient oriented x3 Extrem Other: Left Shoulder: Biceps intact Moving fingers and SILT lateral deltoid discharge from distal wound. Necrotic fat with ? infection but minimal fluid and redness. Psych Appearance: grossly normal Affect: normal affect Attitude: cooperative Assessment & Plan Assessment & Plan (1) Greater tuberosity of humerus fracture: Code(s): S42.253A - Displaced fracture of greater tuberosity of unspecified humerus, initial encounter for closed fracture Plan: This is a 67 year old man S/P left proximal humerus ORIF, DOS: 10/21/12. He has pain and drainage from his wound in the week since his rebekah were removed at his last appointment. His wound was packed and he was given a clean dressing, I prescribed a course of Abx for him to take. He will follow up tomorrow & next Wednesday for a wound check. (2) Postoperative wound infection: Code(s): T81.49XA - Infection following a procedure, other surgical site, initial encounter (3) Closed left scapular fracture: Code(s): S42.102A - Fracture of unspecified part of scapula, left shoulder, initial encounter for closed fracture (4) Anterior shoulder dislocation: Code(s): S43.016A - Anterior dislocation of unspecified humerus, initial encounter Plan Scribed for Jarocho Ballesteros MD by Mingo Grimm, certified ophthalmic medical technician, on 11/12/22 at 9:50 AM, EST. Medications: New sulfamethoxazole-trimethoprim 800-160 mg (Bactrim DS) 1 tab PO BID 10 days 20 tabs 0RF Coding Level of Care Code Global (22944) Diagnoses Greater tuberosity of humerus fracture S42.253A Postoperative wound infection T81.49XA Closed left scapular fracture S42.102A Anterior shoulder dislocation S43.016A
== END 2022-11-12 10:09 | disposition home or self-care (01) ==
PROVIDERS: Visit Provider Orthopaedic Surgery
DX: S42.253A Displaced fracture of greater tuberosity of unspecified humerus, initial encounter for closed fracture (principal); T81.49XA Infection following a procedure, other surgical site, initial encounter; S42.102A Fracture of unspecified part of scapula, left shoulder, initial encounter for closed fracture; S43.016A Anterior dislocation of unspecified humerus, initial encounter
CPT/HCPCS: 99024

== ENCOUNTER → 2022-11-12 09:14 | Outpatient (BNVA) | payer MEDICARE, SELFPAY | PROVIDERS: Visit Provider Orthopaedic Surgery ==

== ENCOUNTER 2022-11-13 10:14 | Outpatient (AMB) | payer MEDICARE, SELFPAY ==
--- NOTE | 2022-11-13 10:17 | MHC.OFFVIS ---
Intake Intake Visit Reasons: PO - Left Proximal Humerus fx 10/21/22 Intake Note: Mal is a 67 year old hand dominant male who presents today a wound check s/p Left Proximal Humerus fx 10/21/22. Patient he is doing well. Allergies No Known Allergies [NO KNOWN ALLERGIES] Allergy (Unknown, Verified 11/13/22 10:17) UNKNOWN HPI PO - Left Proximal Humerus fx 10/21/22 HPI Details 67-year-old male who presents in the office today for a dressing change; 3 weeks status post left proximal humerus open reduction internal fixation, which was performed on 10/21/[address] Ballesteros. The patient reports he is doing well. [facility] Social History Household Members: None Housing: Apartment Do you presently have visiting nurse or other home services: Yes Patient Tobacco Use Status: Current everyday Tobacco user Tobacco use type: Cigarette Review of Systems Const All systems reviewed & are unremarkable except as noted in HPI and below Physical Exam Const General: cooperative, healthy appearing and no acute distress Resp Effort & Inspection: normal respiratory effort and able to speak in complete sentences Cardio Rate: regular rate Peripheral pulses: Peripheral pulses 2+ throughout GI Palpation (GI): Soft to palpation Skin Lesions: no lesions Rashes: no rashes Extrem Other: Left Shoulder: Biceps intact Moving fingers and SILT lateral deltoid Assessment & Plan Assessment & Plan (1) Greater tuberosity of humerus fracture: Code(s): S42.253A - Displaced fracture of greater tuberosity of unspecified humerus, initial encounter for closed fracture Qualifiers: Encounter type: subsequent encounter Fracture alignment: nondisplaced Fracture healing: with routine healing Fracture type: closed Laterality: left Qualified Code(s): S42.255D - Nondisplaced fracture of greater tuberosity of left humerus, subsequent encounter for fracture with routine healing (2) Postoperative wound infection: Code(s): T81.49XA - Infection following a procedure, other surgical site, initial encounter (3) Closed left scapular fracture: Code(s): S42.102A - Fracture of unspecified part of scapula, left shoulder, initial encounter for closed fracture Qualifiers: Encounter type: subsequent encounter Fracture healing: with routine healing Scapula location: unspecified part of scapula Qualified Code(s): S42.102D - Fracture of unspecified part of scapula, left shoulder, subsequent encounter for fracture with routine healing (4) Anterior shoulder dislocation: Code(s): S43.016A - Anterior dislocation of unspecified humerus, initial encounter Qualifiers: Encounter type: subsequent encounter Laterality: left Qualified Code(s): S43.015D - Anterior dislocation of left humerus, subsequent encounter Plan Mr. Ramirez is a 67-year-old male who presents in the office today for a dressing change; 3 weeks status post left proximal humerus open reduction internal fixation, which was performed on 10/21/[address] Ballesteros. The patient reports he is doing well. The wound was cleaned with chloraprep and repacked. Follow up will be on Wednesday for another dressing change, or sooner if needed. Patient Instructions: Scribed for Ghislaine Omer PA-C by Perla Anderson biomedical engineering supervisor, on 11/13/2022 at 10:16 am, EST. Coding Level of Care Code Global (81480) Diagnoses Closed nondisplaced fracture of greater tuberosity of left humerus with routine healing, subsequent encounter S42.255D Encounter type: subsequent encounter Fracture alignment: nondisplaced Fracture healing: with routine healing Fracture type: closed Laterality: left Postoperative wound infection T81.49XA Closed fracture of left scapula with routine healing, unspecified part of scapula, subsequent encounter S42.102D Encounter type: subsequent encounter Fracture healing: with routine healing Scapula location: unspecified part of scapula Anterior dislocation of left shoulder, subsequent encounter S43.015D Encounter type: subsequent encounter Laterality: left
== END 2022-11-13 10:33 | disposition home or self-care (01) ==
PROVIDERS: Visit Provider Physician Assistant
DX: S42.255D Nondisplaced fracture of greater tuberosity of left humerus, subsequent encounter for fracture with routine healing (principal); T81.49XA Infection following a procedure, other surgical site, initial encounter; S42.102D Fracture of unspecified part of scapula, left shoulder, subsequent encounter for fracture with routine healing; S43.015D Anterior dislocation of left humerus, subsequent encounter
CPT/HCPCS: 99024

== ENCOUNTER → 2022-11-13 10:14 | Outpatient (BNVA) | payer MEDICARE, SELFPAY | PROVIDERS: Visit Provider Physician Assistant ==

== ENCOUNTER 2022-11-17 12:59 | Outpatient (AMB) | payer MEDICARE, SELFPAY ==
--- NOTE | 2022-11-17 13:04 | MHC.OFFVIS ---
Intake Intake Visit Reasons: dressing change Intake Note: Mal is a 67 year old hand dominant male who presents today a wound check/dressing change s/p Left Proximal Humerus fx 10/21/22. Patient presents today with T-Shirt sleeve Saturated with drainage. Allergies No Known Allergies [NO KNOWN ALLERGIES] Allergy (Unknown, Verified 11/17/22 13:05) UNKNOWN HPI dressing change HPI Details 67 year old hand dominant male who presents today a wound check/dressing change s/p Open reduction internal fixation left proximal humerus 10/21/22. Patient presents today with T-Shirt sleeve Saturated with drainage. [facility] Social History Household Members: None Housing: Apartment Do you presently have visiting nurse or other home services: Yes Patient Tobacco Use Status: Current everyday Tobacco user Tobacco use type: Cigarette Review of Systems Const All systems reviewed & are unremarkable except as noted in HPI and below Physical Exam Const General: no acute distress, alert and awake Orientation/consciousness: patient oriented x3 HEENT Head: Yes normocephalic and Yes atraumatic Eyes EOM: EOMs intact bilaterally Resp Effort & Inspection: normal respiratory effort and able to speak in complete sentences Cardio Jugular venous distension: no JVD Skin General skin exam: turgor normal Rashes: no rashes Neuro General: patient oriented x3 Extrem Other: Left Shoulder: Biceps intact Moving fingers and SILT lateral deltoid scant discharge from distal wound No surrounding erythema Psych Appearance: grossly normal Affect: normal affect Attitude: cooperative Assessment & Plan Assessment & Plan (1) Greater tuberosity of humerus fracture: Code(s): S42.253A - Displaced fracture of greater tuberosity of unspecified humerus, initial encounter for closed fracture Qualifiers: Encounter type: subsequent encounter Fracture type: closed Fracture alignment: nondisplaced Laterality: left Fracture healing: with routine healing Qualified Code(s): S42.255D - Nondisplaced fracture of greater tuberosity of left humerus, subsequent encounter for fracture with routine healing (2) Postoperative wound infection: Code(s): T81.49XA - Infection following a procedure, other surgical site, initial encounter (3) Closed left scapular fracture: Code(s): S42.102A - Fracture of unspecified part of scapula, left shoulder, initial encounter for closed fracture Qualifiers: Encounter type: subsequent encounter Fracture healing: with routine healing Scapula location: unspecified part of scapula Qualified Code(s): S42.102D - Fracture of unspecified part of scapula, left shoulder, subsequent encounter for fracture with routine healing (4) Anterior shoulder dislocation: Code(s): S43.016A - Anterior dislocation of unspecified humerus, initial encounter Qualifiers: Encounter type: subsequent encounter Laterality: left Qualified Code(s): S43.015D - Anterior dislocation of left humerus, subsequent encounter Plan The wound was cleaned with chloraprep and repacked with packing. He will return in 2-3 days for another dressing change (depending on transportation) , or sooner if needed. Coding Level of Care Code Global (57712) Diagnoses Closed nondisplaced fracture of greater tuberosity of left humerus with routine healing, subsequent encounter S42.255D Encounter type: subsequent encounter Fracture type: closed Fracture alignment: nondisplaced Laterality: left Fracture healing: with routine healing Postoperative wound infection T81.49XA Closed fracture of left scapula with routine healing, unspecified part of scapula, subsequent encounter S42.102D Encounter type: subsequent encounter Fracture healing: with routine healing Scapula location: unspecified part of scapula Anterior dislocation of left shoulder, subsequent encounter S43.015D Encounter type: subsequent encounter Laterality: left
== END 2022-11-17 14:33 | disposition home or self-care (01) ==
PROVIDERS: Visit Provider Physician Assistant
DX: S42.255D Nondisplaced fracture of greater tuberosity of left humerus, subsequent encounter for fracture with routine healing (principal); T81.49XA Infection following a procedure, other surgical site, initial encounter; S42.102D Fracture of unspecified part of scapula, left shoulder, subsequent encounter for fracture with routine healing; S43.015D Anterior dislocation of left humerus, subsequent encounter
CPT/HCPCS: 99024

== ENCOUNTER → 2022-11-17 12:59 | Outpatient (BNVA) | payer MEDICARE, SELFPAY | PROVIDERS: Visit Provider Physician Assistant ==

== ENCOUNTER 2022-11-20 10:10 | Outpatient (AMB) | payer MEDICARE, SELFPAY ==
--- NOTE | 2022-11-20 10:34 | MHC.OFFVIS ---
Intake Intake Visit Reasons: PO -Left Proximal Humerus 10/21/22 ORIF w/Xrays Intake Note: Mal is a 67 year old hand dominant male who presents today a wound check/dressing change s/p Left Proximal Humerus fx 10/21/22. Allergies No Known Allergies [NO KNOWN ALLERGIES] Allergy (Unknown, Verified 11/17/22 13:05) UNKNOWN HPI PO -Left Proximal Humerus 10/21/22 ORIF w/Xrays HPI Details Mal is a 67 year old man who presents ~1 month S/P left shoulder proximal humerus ORIF. He is seen today with his caregiver and is here for a wound check & dressing change. He says he continues to have pain in his shoulder, as well as drainage. He denies any fevers or chills and continues to take his Abx. He complains of back pain and asked if his shoulder would be affected if he began to take steroids for his back. [facility] Social History Household Members: None Housing: Apartment Do you presently have visiting nurse or other home services: Yes Patient Tobacco Use Status: Current everyday Tobacco user Tobacco use type: Cigarette Review of Systems Const All systems reviewed & are unremarkable except as noted in HPI and below Physical Exam Const General: no acute distress, alert and awake Orientation/consciousness: patient oriented x3 HEENT Head: Yes normocephalic and Yes atraumatic Eyes EOM: EOMs intact bilaterally Resp Effort & Inspection: normal respiratory effort and able to speak in complete sentences Cardio Jugular venous distension: no JVD Skin General skin exam: turgor normal Rashes: no rashes Neuro General: patient oriented x3 Extrem Other: Left Shoulder: Biceps intact Moving fingers and SILT lateral deltoid Mild discharge from distal wound. Necrotic fat with ? infection but minimal fluid No surrounding erythema Psych Appearance: grossly normal Affect: normal affect Attitude: cooperative Assessment & Plan Assessment & Plan (1) Greater tuberosity of humerus fracture: Code(s): S42.253A - Displaced fracture of greater tuberosity of unspecified humerus, initial encounter for closed fracture Qualifiers: Encounter type: subsequent encounter Fracture alignment: nondisplaced Fracture healing: with routine healing Fracture type: closed Laterality: left Qualified Code(s): S42.255D - Nondisplaced fracture of greater tuberosity of left humerus, subsequent encounter for fracture with routine healing Plan: This is a 67 year old man S/P left proximal humerus ORIF, DOS: 10/21/12. He has pain and drainage from his wound in the week since his german were removed, but this is improving with Abx and wound care. His wound was cleaned and he was placed in a fresh dressing, he will continue to take his PO Abx as instructed. His caregiver will perform daily WTD dressing changes at home. He will follow up 10 days for a wound check. (2) Postoperative wound infection: Code(s): T81.49XA - Infection following a procedure, other surgical site, initial encounter (3) Closed left scapular fracture: Code(s): S42.102A - Fracture of unspecified part of scapula, left shoulder, initial encounter for closed fracture Qualifiers: Encounter type: subsequent encounter Fracture healing: with routine healing Scapula location: unspecified part of scapula Qualified Code(s): S42.102D - Fracture of unspecified part of scapula, left shoulder, subsequent encounter for fracture with routine healing (4) Anterior shoulder dislocation: Code(s): S43.016A - Anterior dislocation of unspecified humerus, initial encounter Qualifiers: Encounter type: subsequent encounter Laterality: left Qualified Code(s): S43.015D - Anterior dislocation of left humerus, subsequent encounter Plan Scribed for Jarocho Ballesteros MD by Mingo Grimm, medical technologist, on 11/20/22 at 11:00 AM, EST. Coding Level of Care Code Global (00524) Diagnoses Closed nondisplaced fracture of greater tuberosity of left humerus with routine healing, subsequent encounter S42.255D Encounter type: subsequent encounter Fracture alignment: nondisplaced Fracture healing: with routine healing Fracture type: closed Laterality: left Postoperative wound infection T81.49XA Closed fracture of left scapula with routine healing, unspecified part of scapula, subsequent encounter S42.102D Encounter type: subsequent encounter Fracture healing: with routine healing Scapula location: unspecified part of scapula Anterior dislocation of left shoulder, subsequent encounter S43.015D Encounter type: subsequent encounter Laterality: left
== END 2022-11-20 11:07 | disposition home or self-care (01) ==
PROVIDERS: PCP Family Medicine; Visit Provider Orthopaedic Surgery
DX: S42.255D Nondisplaced fracture of greater tuberosity of left humerus, subsequent encounter for fracture with routine healing (principal); T81.49XA Infection following a procedure, other surgical site, initial encounter; S42.102D Fracture of unspecified part of scapula, left shoulder, subsequent encounter for fracture with routine healing; S43.015D Anterior dislocation of left humerus, subsequent encounter
CPT/HCPCS: 99024

== ENCOUNTER → 2022-11-20 10:10 | Outpatient (BNVA) | payer MEDICARE, SELFPAY | PROVIDERS: Visit Provider Orthopaedic Surgery ==

== ENCOUNTER → 2022-12-04 11:41 | Outpatient (BNVA) | payer MEDICARE, SELFPAY | PROVIDERS: Visit Provider Orthopaedic Surgery ==

== ENCOUNTER 2023-04-15 17:13 | Emergency (ER) | payer MEDICARE, SELFPAY ==
--- NOTE | ~2023-04-15 | CT_ITS ---
EXAMINATION: CT ANGIOGRAM OF THE CHEST WITH AND WITHOUT CONTRAST (CT PULMONARY ANGIOGRAM FOR PE) CLINICAL INFORMATION: Reason for Exam Dyspnea on exertion, elevated D-dimer COMPARISON: None available. TECHNIQUE: Prior to contrast administration, noncontrast localization images were obtained. Subsequently, multidetector volumetric imaging was performed from the thoracic inlet to below the diaphragms following the administration of 80 mL Omnipaque 350 intravenous contrast. No contrast reaction reported Sagittal, coronal, and MIP oblique sagittal reformatted images were obtained on the CT workstation, uploaded to PACS, and reviewed. This CT examination was performed using dose optimization techniques as appropriate, variously including the following: *Automated exposure control *Adjustment of mA and/or kV according to patient size (this includes techniques or standardized protocols for targeted exams where dose is matched to indication/reason for exam; i.e. extremities or head) *Use of iterative reconstruction technique Total exam dose-length product 580 mGy-cm FINDINGS: QUALITY OF STUDY/CONTRAST BOLUS: Suboptimal. PULMONARY ARTERIES: There is no filling defects seen in the main, right and left pulmonary arteries. The subsegmental arteries are not well opacified and PE cannot be excluded. THORACIC AORTA: No aneurysm. LUNG: The lungs are well-expanded and clear of acute process. There is a patchy ill-defined 3 mm nodule left lower lobe axial image 41/6, mild reticular stranding with patchy opacity left upper lobe anterior segment platelike atelectasis left lung base. PLEURA: There is no pleural effusion or thickening. MEDIASTINUM: Heart size and the great vessels are normal caliber lobes are symmetric and normal. No pericardial effusion seen. No abnormal size mediastinal or hilar lymph nodes seen. No evidence of septal bowing or right heart strain. CORONARY ARTERY CALCIFICATION: None visualized on this study. CHEST WALL/AXILLA: No axillary or internal mammary lymphadenopathy. OSSEOUS STRUCTURES: No aggressive lytic or sclerotic process seen. There is mild degenerative disc changes and moderate ventral spondylosis mid and lower dorsal spine. No aggressive lytic or sclerotic process seen. UPPER ABDOMEN: Visualized liver, spleen and pancreas unremarkable. There is solitary gallstone. No reflux of contrast into the hepatic veins to suggest elevated right heart pressures. CT/CT angio chest PE protocol IMPRESSION: Suboptimal exam. However no filling defects seen in the main, right and left pulmonary arteries. The subsegmental vessels are not optimally visualized. If there is a clinical high suspicion a repeat CTA or a VQ scan can be performed. Atelectatic changes and small ill-defined nodule left lower lobe. VTE: indeterminate
--- NOTE | ~2023-04-15 | XR_ITS ---
EXAMINATION: XR CHEST CLINICAL INFORMATION: Pain. COMPARISON: Chest radiograph dated 03/13/2019. TECHNIQUE: 2 views of the chest were obtained. FINDINGS: The cardiac silhouette is normal in size and configuration. Both lungs are clear. There is no pleural effusion. No pneumothorax. No acute osseous abnormality. There is chronic deformity of the left glenohumeral joint. XR/XR chest 2V IMPRESSION: No acute cardiopulmonary disease.
[2023-04-15 17:30] VITALS: BP 132/92; PULSE 90; BMI 38.7
--- NOTE | 2023-04-15 17:35 | ECG_ITS ---
Test Reason : PAIN Blood Pressure : / mmHG Vent. Rate : 080 BPM Atrial Rate : 080 BPM P-R Int : 148 ms QRS Dur : 088 ms QT Int : 396 ms P-R-T Axes : 000 000 025 degrees QTc Int : 456 ms Poor data quality, interpretation may be adversely affected Normal sinus rhythm Normal ECG When compared with ECG of 13-MAR-2019 14:52, No significant change was found Referred By: Manny Powell Electronically Signed By:Gary Cruz
--- NOTE | 2023-04-15 17:51 | ED.GENADULT ---
HPI - General Adult General Chief complaint: Dyspnea Stated complaint: diff breathing x3days, no improve w albuterol Time Seen by Provider: 04/15/23 17:26 Source: patient, RN notes reviewed and old records reviewed Mode of arrival: ambulatory Limitations: no limitations History of Present Illness HPI narrative: 67-year-old male with past medical history significant for obesity, asthma presents for evaluation of shortness of breath. Patient reports shortness of breath over the last 3 days, especially worse with exertion. He feels as if he was having an asthma exacerbation has been using his albuterol inhaler without any improvement Reports that he ran out of his albuterol inhaler earlier today Patient reports walking from his couch to the bathroom he feels winded and short of breath. Denies any chest pain He denies any leg swelling Denies any fevers, chills but endorses cough Denies any sick contacts He has no other complaints or concerns at this time Related Data Home Medications Medication Instructions Recorded Confirmed albuterol sulfate 90 mcg/actuation 1 inh inhalation QID PRN Shortness 10/20/22 11/06/22 aerosol inhaler Of Breath Or Wheezing meclizine 25 mg tablet 25 mg PO DAILY PRN Dizziness Or 10/20/22 11/06/22 Vertigo Previous Rx's Medication Instructions Recorded oxycodone 5 mg capsule 5 mg PO Q8H PRN pain 4 days #12 11/04/22 caps sulfamethoxazole 800 1 tab PO BID 10 days #20 tabs 11/12/22 mg-trimethoprim 160 mg tablet (Bactrim DS) oxycodone 5 mg tablet 5 mg PO Q12H PRN pain #14 tabs 11/27/22 albuterol sulfate 90 mcg/actuation 2 puff inhalation Q4-6H PRN 04/15/23 aerosol inhaler shortness of breath or wheezing #8.5 grams prednisone 20 mg tablet 40 mg (2 x 20 mg) PO DAILY #10 tabs 04/15/23 Allergies Allergy/AdvReac Type Severity Reaction Status Date / Time No Known Allergies Allergy Unknown UNKNOWN Verified 04/15/23 17:29 [NO KNOWN ALLERGIES] Review of Systems Constitutional: Constitutional: Denies body ache(s), Denies chills and Denies fever(s) ENT: Denies sinus pressure and Denies sore throat Cardiovascular: Cardiovascular: Denies chest pain, Denies leg edema, Reports dyspnea, Reports dyspnea on exertion and Denies orthopnea Respiratory: Respiratory: Denies chest congestion, Reports cough, Reports dyspnea, Reports dyspnea on exertion and Denies wheezing Gastrointestinal: Gastrointestinal: Denies abdominal pain, Denies nausea and Denies vomiting Musculoskeletal: Musculoskeletal: Denies back pain Integumentary/Breasts: Skin/Breast: Denies rash Allergic/Immunologic: Allergic/Immunologic: Denies wheezing PMFSH Social History Social History Household Members: None Housing: Apartment Do you presently have visiting nurse or other home services: Yes Patient Tobacco Use Status: Current everyday Tobacco user Tobacco use type: Cigarette Smoked in Last 30 Days: No Use of substances other than those prescribed or required for medical reasons: No Advance Directives: No Advance Directives Information Provided: No Physical Exam ED Vital Signs: Vital Signs - 24 hr 04/15/23 18:15 04/15/23 20:00 Temperature 98.6 F Pulse Rate 81 84 Respiratory Rate 16 16 Blood Pressure 134/92 H 131/101 H Pulse Oximetry 92 95 Oxygen Delivery Method Room Air Room Air BMI result Body Mass Index 38.7 Const General: healthy appearing, comfortable, no acute distress, alert and awake Nutritional Appearance: well nourished Orientation/consciousness: patient oriented x3 HENMT Head: Yes normocephalic and Yes atraumatic Eyes Eyelids: Yes eyelids normal Conjunctivae: conjunctivae normal Sclerae: sclerae normal Corneas: corneas normal Pupils: Equal, round and reactive pupils present EOM: EOMs intact bilaterally Neck Neck: Yes full ROM Resp Effort & Inspection: normal respiratory effort, able to speak in complete sentences, no audible wheezes and not labored Auscultation: clear to auscultation bilaterally Cardio Other: 1+ bilateral pitting edema to lower extremities Rate: regular rate Rhythm: regular rhythm GI Inspection: No distended Palpation (GI): Soft to palpation, not firm, nontender, no guarding and not rigid Skin General skin exam: elasticity normal Neuro General: patient oriented x3 Cranial nerves: Yes Equal, round and reactive pupils present and Yes Bilaterally intact EOM present Cognition (Neuro): normal cognition Extrem Other: Moving all extremities well without any obvious deformities Course Reevaluation(s) Reevaluation #1: Patient's D-dimer resulted elevated to 608, no other cause of the patient's shortness of breath has been found, plan for CT angiography of the chest Time: 18:57 Reevaluation #2: CT angiography was apparently a suboptimal study, however did not show any large pulmonary embolus. Unable to visualize the smaller vessels. The patient had a negative troponin, negative BNP, he has not hypoxic or tachypneic/tachycardic. Plan to discharge the patient. He will follow up with his PCP for further evaluation and management. He reports he has an appointment next week Time: 20:51 Medications Administered Discontinued Medications Generic Name Dose Route Start Last Admin Trade Name Freq PRN Reason Stop Dose Admin Albuterol Sulfate 2 puff 04/15/23 20:46 04/15/23 20:49 Albuterol Sulfate 90 Mcg 8 Gm Inhaler INHALE 04/15/23 20:47 2 puff ONCE ONE Administration Iohexol 100 ml 04/15/23 19:23 04/15/23 19:24 Iohexol 350 Mg/Ml 100 Ml Infus..Btl IV 04/15/23 19:24 75 ml ONCE ONE Administration Medical Decision Making Medical Decision Making [facility] Narrative: 67-year-old male presents for evaluation of 3 days of shortness of breath worse with exertion. His lungs are clear to auscultation making asthma less likely. He does have lower extremity edema despite denying leg swelling. Plan for cardiac workup including labs, troponin, chest x-ray, BNP, viral swabs. Differential Diagnosis Differential Diagnoses: The differential diagnosis associated with the presentation includes Asthma exacerbation COPD Congestive heart failure Bronchitis Pneumonia Influenza Upper respiratory infection PE Admission/Observation Consideration of admission/observation: Escalation of care including admission/observation considered Considered for admission due to shortness of breath on exertion, however the patient ruled out for ACS as he has a normal troponin and normal EKG despite 3 days of symptoms. His chest x-ray was clear and no evidence of large significant PE Lab Data [facility] Lab Attestation statement: I reviewed the patient's lab results. No leukocytosis or anemia. Normal platelet count. No significant electrolyte abnormalities. Patient's BUN is very slightly elevated to 18 with a normal creatinine 1.00. Troponin is normal at 2.8. BNP is less than 10. However patient's D-dimer is elevated to 608 04/15/23 18:03 04/15/23 18:03 Labs: Lab Results 04/15/23 Range/Units 18:03 WBC 7.3 (4.8-10.8) X10*3/uL RBC 5.09 D (4.60-5.80) X10*6/uL Hgb 16.2 D (14.0-18.0) g/dl Hct 46.2 D (42.0-52.0) % MCV 90.8 (80.0-98.0) fL MCH 31.8 (27.0-33.0) pg MCHC 35.1 (31.0-36.0) g/dl RDW 14.9 (11.0-16.0) % Plt Count 248 D (160-400) X10*3/uL MPV 8.9 L (9.4-12.4) fL Immature Gran % (Auto) 0.3 (0.0-0.4) % Neut % (Auto) 48.8 (45-73) % Lymph % (Auto) 33.5 (20-40) % [place] % (Auto) 7.9 (2-11) % Eos % (Auto) 8.4 H (0-4) % Baso % (Auto) 1.1 (0-2) % Lymph # (Auto) 2.4 (1.2-4.9) X10*3/uL [place] # (Auto) 0.6 (0.1-1.2) X10*3/uL Eos # (Auto) 0.6 H (0.0-0.4) X10*3/uL Baso # (Auto) 0.1 (0.0-0.2) X10*3/uL Abs Immat Gran (auto) 0.02 (0.00-0.03) X10*3/uL Absolute Neuts (auto) 3.5 (2.0-8.3) x10*3/uL Absolute Nucleated RBC 0.000 (0.0-0.012) X10*3/uL Nucleated RBC % (auto) 0.0 (0.0-0.2) /100WBC PT 11.2 (11.1-13.3) SEC INR 0.9 (0.9-1.1) D-Dimer High Sensitivty 608 NG/ML Sodium 140 (135-145) mmol/L Potassium 4.3 (3.3-5.1) mmol/L Chloride 109 H (96-108) mmol/L Carbon Dioxide 24 (22-29) mmol/L Anion Gap 11 L (12-20) BUN 18 H (9-16) mg/dL Creatinine 1.00 (0.5-1.4) mg/dL Estim Creat Clear Calc 95.3 Estimated GFR > 60 Random Glucose 96 (60-115) mg/dL Calcium 9.0 (8.4-10.2) mg/dL Total Bilirubin 0.3 (0.0-1.0) mg/dL AST 21 (5-37) U/L ALT 15 (0-40) U/L Alkaline Phosphatase 98 (39-117) U/L Troponin I High Sens 2.8 (<3.5-35.0) ng/L B-Natriuretic Peptide < 10 (<100) pg/mL Total Protein 6.9 (6.5-8.0) g/dL Albumin 3.7 (3.5-5.0) g/dL Lipase 16 (8-78) U/L Influenza Type A (PCR) NEGATIVE (Negative) Influenza Type B (PCR) NEGATIVE (Negative) RSV RNA Qual (PCR) NEGATIVE (Negative) SARS-CoV-2 RNA (RT-PCR) NEGATIVE (Negative) Independent Interpretation I performed an independent interpretation of an: EKG (Normal sinus rhythm with a rate of [address] segment changes) and Plain X-Ray (No focal infiltrates or large pleural effusions) Radiology Impression Discussion of test interpretation with radiology: I have reviewed the radiologist's reading. (Suboptimal exam. No filling defects seen in the main, right and left pulmonary arteries. Subsegmental vessels are not optimally visualized.) Radiologist Impression: No acute cardiopulmonary disease of the chest Discharge Plan Discharge Clinical Impression: Dyspnea on exertion Patient Disposition: Home, Self-Care Instructions: Dyspnea (ED) Additional Instructions: Your workup in the ER today did not show any concerning abnormalities. Your chest x-ray was clear, her EKG was nonischemic. Your CTA did not show any large blood clots in your lungs but was unable to visualize the smaller vessels very well I recommend that you follow-up with your primary doctor as well as a contracts administrator given your symptoms Take prednisone 40 mg daily for the next 5 days I sent a refill for your albuterol inhaler to your pharmacy as well Return for new or worsening symptoms Prescriptions: New prednisone 20 mg tablet 40 mg PO DAILY Qty: 10 0RF albuterol sulfate 90 mcg/actuation HFA aerosol inhaler 2 puff inhalation Q4-6H PRN (Reason: shortness of breath or wheezing) Qty: 8.5 0RF No Action oxycodone 5 mg capsule 5 mg PO Q8H PRN (Reason: pain) 4 Days Qty: 12 0RF Rx Instructions: Partial Fill upon patient request. oxycodone 5 mg tablet 5 mg PO Q12H PRN (Reason: pain) Qty: 14 0RF Rx Instructions: Partial Fill upon patient request. meclizine 25 mg Tablet 25 mg PO DAILY PRN (Reason: Dizziness Or Vertigo) albuterol sulfate 90 mcg/actuation Hfa Aerosol Inhaler 1 inh INHALATION QID PRN (Reason: Shortness Of Breath Or Wheezing) sulfamethoxazole-trimethoprim [Bactrim DS] 800-160 mg tablet 1 tab PO BID 10 Days Qty: 20 0RF Referrals: Gary Cruz MD [Physician] - (dyspnea on exertion)
--- NOTE | 2023-04-15 18:05 | PC.NURSE ---
20gIV placed in the right hand. labs obtained/sent to lab. pt waiting to go to xray at this time. plan of care ongoing. call ch placed within reach.
[2023-04-15 18:07] LABS: MANUAL DIFF FLAG NO
[2023-04-15 18:11] LABS: Basophils Absolute Auto 0.1 X10*3/uL (0.0-0.2); Basophils Percent Auto 1.1 % (0-2); Eosinophils Absolute Auto 0.6 X10*3/uL (0.0-0.4); Eosinophils Percent Auto 8.4 % (0-4); Hematocrit 46.2 % (42.0-52.0); Hemoglobin 16.2 g/dl (14.0-18.0); Imm Gran Abs Auto 0.02 X10*3/uL (0.00-0.03); Imm Gran Pct Auto 0.3 % (0.0-0.4); Lymphocytes Absolute Auto 2.4 X10*3/uL (1.2-4.9); Lymphocytes Percent Auto 33.5 % (20-40); Mean Corpuscular HGB Conc 35.1 g/dl (31.0-36.0); Mean Corpuscular Hemoglobin 31.8 pg (27.0-33.0); Mean Corpuscular Volume 90.8 fL (80.0-98.0); Mean Platelet Volume 8.9 fL (9.4-12.4); Monocytes Absolute Auto 0.6 X10*3/uL (0.1-1.2); Monocytes Percent Auto 7.9 % (2-11); Neutrophils Absolute Auto 3.5 x10*3/uL (2.0-8.3); Neutrophils Percent Auto 48.8 % (45-73); Platelet Count 248 X10*3/uL (160-400); Red Blood Count 5.09 X10*6/uL (4.60-5.80); Red Cell Distribution Width 14.9 % (11.0-16.0); White Blood Count 7.3 X10*3/uL (4.8-10.8)
[2023-04-15 18:15] VITALS: BP 134/92; PULSE 81; RESP 16; O2SAT 92
[2023-04-15 18:16] LABS: INTERNATIONAL NORM RATIO 0.9 (0.9-1.1); Prothrombin Time 11.2 SEC (11.1-13.3)
[2023-04-15 18:29] LABS: Alanine Aminotransferase 15 U/L (0-40); Albumin Level 3.7 g/dL (3.5-5.0); Alkaline Phosphatase 98 U/L (39-117); Anion Gap 11 (12-20); Aspartate Amino Transferase 21 U/L (5-37); Bilirubin Total 0.3 mg/dL (0.0-1.0); Blood Urea Nitrogen 18 mg/dL (9-16); Carbon Dioxide 24 mmol/L (22-29); Chloride 109 mmol/L (96-108); Creatinine Clr Calc Pharmacy 95.3; Estimated Glomerular Filt Rate > 60; Glucose Random 96 mg/dL (60-115); Lipase 16 U/L (8-78); Potassium 4.3 mmol/L (3.3-5.1); Sodium 140 mmol/L (135-145); Total Protein 6.9 g/dL (6.5-8.0)
[2023-04-15 18:34] LABS: B Type Natriuretic Peptide < 10 pg/mL (<100)
[2023-04-15 18:37] LABS: Troponin-I High Sensitivity 2.8 ng/L (<3.5-35.0)
[2023-04-15 18:46] LABS: D Dimer High Sensitivity 608 NG/ML
[2023-04-15 18:49] LABS: Influenza A PCR NEGATIVE (Negative); Influenza B PCR NEGATIVE (Negative); Resp Syncy Virus RNA Qual PCR NEGATIVE (Negative); SARS COV2 PCR INHOUSE NEGATIVE (Negative)
--- NOTE | 2023-04-15 19:12 | PC.NURSE ---
assumed care of pt at 1900 - #20g iv line placed in LAC for CTA chest. pt placed on school bus monitor.
[2023-04-15] MEDS: iohexoL 350 MG/ML 100 ML INFUS..BTL IV (19:24)
[2023-04-15 20:00] VITALS: BP 131/101; PULSE 84; RESP 16; TEMP 37; O2SAT 95
[2023-04-15] MEDS: Albuterol Sulfate 90 MCG 8 GM INHALER 2 PUFF INHALE (20:49)
== END 2023-04-15 21:00 | disposition home or self-care (01) ==
PROVIDERS: Physician Assistant; Emergency Provider Emergency Medicine
DX: R07.89 Other chest pain (principal); R06.02 Shortness of breath; Z11.52 Encounter for screening for COVID-19; Z20.822 Contact with and (suspected) exposure to COVID-19; Z79.899 Other long term (current) drug therapy
CPT/HCPCS: 0241U; 71046; 71275; 80053; 83690; 83880; 84484; 85025; 85379; 85610; 93005; 99284; 99285; Q9967

== ENCOUNTER → 2023-04-15 17:35 | Outpatient (BNV) | payer MEDICARE, SELFPAY | PROVIDERS: Emergency Provider Emergency Medicine; Visit Provider Internal Medicine Cardiovascular Disease | DX: R07.9 Chest pain, unspecified (principal) | CPT/HCPCS: 93010 ==